=== PATIENT | male | born 1985 | race African-American/Black ===

== ENCOUNTER 2016-12-03 20:55 | Inpatient (IN) | payer MEDICAID ==
[~2016-12-03] VITALS: Ht 167.6 cm; Wt 80.7 kg
[~2016-12-03 20:55] MED LIST: DIVA500T69 PO; FLUO-191 PO; QUET300T2 PO
[2016-12-03 23:55] VITALS: BP 150/83
[2016-12-04] MEDS ORDERED: INFLUENZA VIRUS VACCINE QVS 2016-17 (3YR+)/PF 60 MCG/0.5 ML SYRINGE IM ONE (01:00)
[2016-12-04 02:40] VITALS: BP 147/88
[2016-12-04 08:15] VITALS: BP 108/58
[2016-12-04] MEDS: AmLODIPine BESYLATE 5 MG TABLET PO SCH (09:15)
[2016-12-04] MEDS: ZIPRASIDONE HCL 40 MG CAPSULE PO SCH ×2 (13:16→16:45)
[2016-12-04 16:00] VITALS: BP 118/64
[2016-12-05 04:26] VITALS: BP 117/66
[2016-12-05] MEDS: ZIPRASIDONE HCL 40 MG CAPSULE PO SCH ×2 (06:25→17:00)
[2016-12-05] MEDS: AmLODIPine BESYLATE 5 MG TABLET PO SCH (08:01)
[2016-12-05 08:11] VITALS: BP 120/68
[2016-12-05 08:34] LABS: BASOPHILS # (AUTO) 0.03 K/uL (0.00-0.20); BASOPHILS % (AUTO) 0.3 % (0.0-2.0); EOSINOPHILS # (AUTO) 0.16 K/uL (0.00-0.70); EOSINOPHILS % (AUTO) 1.89 % (1.0-6.0); HEMATOCRIT 45.3 % (41-53); HEMOGLOBIN 14.5 g/dL (13.5-17.5); LYMPHOCYTES # (AUTO) 1.7 K/uL (1.0-4.8); LYMPHOCYTES % (AUTO) 19.4 % (22.0-44.0); MEAN CORPUSCULAR HEMOGLOBIN 28.1 pg (26.0-34.0); MEAN CORPUSCULAR VOLUME 88 fL (80-100); MONOCYTES # (AUTO) 0.5 K/uL (0.1-1.0); MONOCYTES % (AUTO) 5.6 % (2.0-9.0); NEUTROPHILS # (AUTO) 6.3 K/uL (1.8-7.7); NEUTROPHILS % (AUTO) 72.8 % (40.0-70.0); PLATELET COUNT (AUTO) 228 K/uL (150-450); RED BLOOD CELL COUNT(AUTO) 5.17 MIL/uL (4.50-5.90); RED CELL DISTRIBUTION WIDTH 13.7 % (11.5-14.5); WHITE BLOOD COUNT (AUTO) 8.7 K/uL (4.5-11.0)
[2016-12-05 09:34] LABS: ALANINE AMINOTRANSFERASE 35 U/L (12-78); ALBUMIN 3.3 g/dL (3.4-5.0); ANION GAP 7 mmol/L (8-16); ASPARTATE AMINOTRANSFERASE 19 U/L (15-37); BILIRUBIN,TOTAL 0.5 mg/dL (0.1-1.0); CALCIUM, TOTAL 8.9 mg/dL (8.8-10.5); CARBON DIOXIDE 31 mmol/L (22-29); CHLORIDE 109 mmol/L (98-107); CHOL/HDL RATIO 3.7 (4.2-7.3); CREATININE 1.25 mg/dL (0.60-1.30); GLOMERULAR FILTR. RATE CALC > 60 mL/min (>60); POTASSIUM 3.9 mmol/L (3.5-5.1); SODIUM SERUM 147 mmol/L (136-145); TOTAL PROTEIN, SERUM 6.8 g/dL (6.4-8.2); UREA NITROGEN, BLOOD 13 mg/dL (7-18)
[2016-12-05 09:48] LABS: VALPROIC ACID < 3 mcg/mL (50-100)
[2016-12-05 16:52] VITALS: BP 102/60
[2016-12-06] MEDS: ZOLPIDEM TARTRATE 10 MG TABLET PO PRN ×2 (00:27→20:33)
[2016-12-06 05:18] VITALS: BP 114/62
[2016-12-06] MEDS: ZIPRASIDONE HCL 40 MG CAPSULE PO SCH ×2 (06:17→16:22)
[2016-12-06 08:56] VITALS: BP 136/86
[2016-12-06] MEDS: LORazepam 2 MG TABLET PO PRN ×3 (08:56→20:33)
[2016-12-06] MEDS: AmLODIPine BESYLATE 5 MG TABLET PO SCH (08:56)
[2016-12-06 16:02] VITALS: BP 136/73
[2016-12-06] MEDS: HALOPERIDOL 5 MG TABLET PO PRN (16:22)
[2016-12-07 04:42] VITALS: BP 135/72
[2016-12-07] MEDS: ZIPRASIDONE HCL 40 MG CAPSULE PO SCH ×2 (06:37→16:17)
[2016-12-07 08:04] VITALS: BP 128/70
[2016-12-07] MEDS: AmLODIPine BESYLATE 5 MG TABLET PO SCH (09:57)
[2016-12-07] MEDS: LORazepam 2 MG TABLET PO PRN ×2 (09:57→16:17)
[2016-12-07 16:00] VITALS: BP 117/87
[2016-12-07] MEDS: HALOPERIDOL 5 MG TABLET PO PRN (16:17)
[2016-12-08] MEDS: ZIPRASIDONE HCL 40 MG CAPSULE PO SCH ×2 (06:14→16:01)
[2016-12-08 06:56] VITALS: BP 146/85
[2016-12-08 08:14] VITALS: BP 127/61
[2016-12-08] MEDS: AmLODIPine BESYLATE 5 MG TABLET PO SCH (08:33)
[2016-12-08] MEDS: LORazepam 2 MG TABLET PO PRN (08:33)
[2016-12-08] MEDS ORDERED: ZIPR40CA2 PO (14:15)
[2016-12-08] MEDS ORDERED: AMLO-511 PO (14:15)
[2016-12-08 16:22] VITALS: BP 120/68
== END 2016-12-08 16:30 | disposition home or self-care (01) | DRG 750 ==
LOC: B3A 12-04 00:07
PROVIDERS: ADMIT Psychiatry & Neurology Child & Adolescent Psychiatry; ATTEND Psychiatry & Neurology Child & Adolescent Psychiatry
DX: F25.1 Schizoaffective disorder, depressive type (principal); F39 Unspecified mood [affective] disorder; I10 Essential (primary) hypertension; Z79.899 Other long term (current) drug therapy; Z90.49 Acquired absence of other specified parts of digestive tract; Z72.89 Other problems related to lifestyle
CPT/HCPCS: 90471

== ENCOUNTER 2016-12-11 18:30 | Inpatient (IN) | payer MEDICAID ==
[~2016-12-11] VITALS: Ht 172.7 cm; Wt 80.3 kg
[~2016-12-11 18:30] MED LIST changes: +AMLO-511 PO; -DIVA500T69 PO; -FLUO-191 PO; -QUET300T2 PO; +ZIPR40CA2 PO
[2016-12-11 19:10] VITALS: BP 129/77
[2016-12-11] MEDS ORDERED: HALOPERIDOL 5 MG TABLET PO PRN (19:15)
[2016-12-11] MEDS ORDERED: LORazepam 2 MG TABLET PO PRN (19:15)
[2016-12-11] MEDS ORDERED: INFLUENZA VIRUS VACCINE QVS 2016-17 (3YR+)/PF 60 MCG/0.5 ML SYRINGE IM ONE (20:15)
[2016-12-11] MEDS ORDERED: PNEUMOCOCCAL VACCINE POLYVALENT 0.5 ML VIAL [PPSV23] IM ONE (20:15)
[2016-12-11 20:57] VITALS: BP 141/70
[2016-12-12 00:59] VITALS: BP 109/69
[2016-12-12] MEDS: ZIPRASIDONE HCL 40 MG CAPSULE PO SCH ×2 (06:51→16:23)
[2016-12-12 07:15] LABS: BASOPHILS # (AUTO) 0.07 K/uL (0.00-0.20); EOSINOPHILS # (AUTO) 0.13 K/uL (0.00-0.70); EOSINOPHILS % (AUTO) 1.94 % (1.0-6.0); HEMATOCRIT 43.3 % (41-53); HEMOGLOBIN 14.1 g/dL (13.5-17.5); LYMPHOCYTES # (AUTO) 1.5 K/uL (1.0-4.8); LYMPHOCYTES % (AUTO) 22.3 % (22.0-44.0); MEAN CORPUSCULAR HEMOGLOBIN 28.4 pg (26.0-34.0); MEAN CORPUSCULAR HGB CONC 32.6 G/dL (31.0-37.0); MEAN CORPUSCULAR VOLUME 87 fL (80-100); MONOCYTES # (AUTO) 0.6 K/uL (0.1-1.0); NEUTROPHILS # (AUTO) 4.5 K/uL (1.8-7.7); NEUTROPHILS % (AUTO) 65.8 % (40.0-70.0); PLATELET COUNT (AUTO) 238 K/uL (150-450); RED BLOOD CELL COUNT(AUTO) 4.97 MIL/uL (4.50-5.90); RED CELL DISTRIBUTION WIDTH 13.2 % (11.5-14.5); WHITE BLOOD COUNT (AUTO) 6.9 K/uL (4.5-11.0)
[2016-12-12 07:59] LABS: ALANINE AMINOTRANSFERASE 46 U/L (12-78); ALBUMIN 3.5 g/dL (3.4-5.0); ANION GAP 9 mmol/L (8-16); ASPARTATE AMINOTRANSFERASE 25 U/L (15-37); BILIRUBIN,TOTAL 0.4 mg/dL (0.1-1.0); CALCIUM, TOTAL 8.9 mg/dL (8.8-10.5); CARBON DIOXIDE 29 mmol/L (22-29); CHLORIDE 108 mmol/L (98-107); CHOL/HDL RATIO 4.6 (4.2-7.3); CREATININE 1.29 mg/dL (0.60-1.30); GLOMERULAR FILTR. RATE CALC > 60 mL/min (>60); SODIUM SERUM 146 mmol/L (136-145); TOTAL PROTEIN, SERUM 7.1 g/dL (6.4-8.2); UREA NITROGEN, BLOOD 19 mg/dL (7-18)
[2016-12-12 08:51] VITALS: BP 111/62
[2016-12-12] MEDS: AmLODIPine BESYLATE 5 MG TABLET PO SCH (09:14)
[2016-12-12 16:00] VITALS: BP_SYST 115; BP_SYST 118; BP_DIAS 61; BP_DIAS 74
[2016-12-13 03:53] VITALS: BP 106/61
[2016-12-13] MEDS: ZIPRASIDONE HCL 40 MG CAPSULE PO SCH ×2 (06:32→16:16)
[2016-12-13] MEDS: AmLODIPine BESYLATE 5 MG TABLET PO SCH ×2 (08:39→09:00)
[2016-12-13 08:53] VITALS: BP 113/62
[2016-12-13 16:34] VITALS: BP 137/96
[2016-12-14 01:08] VITALS: BP 136/84
[2016-12-14] MEDS: ZOLPIDEM TARTRATE 10 MG TABLET PO PRN ×2 (01:10→20:34)
[2016-12-14] MEDS: ZIPRASIDONE HCL 40 MG CAPSULE PO SCH ×2 (06:17→16:58)
[2016-12-14 08:21] VITALS: BP 139/68
[2016-12-14] MEDS: AmLODIPine BESYLATE 5 MG TABLET PO SCH (08:52)
[2016-12-14 16:30] VITALS: BP 133/81
[2016-12-15 06:00] VITALS: BP 138/82
[2016-12-15] MEDS: ZIPRASIDONE HCL 40 MG CAPSULE PO SCH (06:40)
[2016-12-15 08:26] VITALS: BP 136/69
[2016-12-15] MEDS ORDERED: NYSTATIN 30 GM CREAM TP SCH ×4 (09:00→17:00)
[2016-12-15] MEDS ORDERED: BACITRACIN 28.4 GM OINTMENT TP SCH (09:00)
[2016-12-15] MEDS: AmLODIPine BESYLATE 5 MG TABLET PO SCH (10:28)
== END 2016-12-15 16:00 | disposition home or self-care (01) | DRG 750 ==
LOC: B2S 19:23 → EDSTATUS 20:03 → B2S 12-14 17:04
PROVIDERS: ADMIT Psychiatry & Neurology Psychiatry; ATTEND Psychiatry & Neurology Child & Adolescent Psychiatry
PROC: 3E0234Z Introduction of Serum, Toxoid and Vaccine into Muscle, Percutaneous Approach (ICD-10-PCS; principal; 2016-12-11)
PROC: 3E0234Z Introduction of Serum, Toxoid and Vaccine into Muscle, Percutaneous Approach (ICD-10-PCS; 2016-12-11)
DX: F25.1 Schizoaffective disorder, depressive type (principal); R45.851 Suicidal ideations; Z59.0 Homelessness; I10 Essential (primary) hypertension; B35.3 Tinea pedis; F12.90 Cannabis use, unspecified, uncomplicated; Z90.49 Acquired absence of other specified parts of digestive tract; Z79.899 Other long term (current) drug therapy; Z23 Encounter for immunization
CPT/HCPCS: 87081; 90471

== ENCOUNTER 2016-12-26 00:41 | Inpatient (IN) | payer MEDICAID, OTHER ==
[~2016-12-26] VITALS: Ht 172.7 cm; Wt 80.7 kg
[2016-12-26 01:42] LABS: BASOPHILS % (AUTO) 0.5 % (0.0-2.0); EOSINOPHILS % (AUTO) 3.5 % (1.0-6.0); HEMATOCRIT 40.8 % (41-53); HEMOGLOBIN 13.1 g/dL (13.5-17.5); LYMPHOCYTES # (AUTO) 2.2 K/uL (1.0-4.8); LYMPHOCYTES % (AUTO) 33.9 % (22.0-44.0); MEAN CORPUSCULAR HEMOGLOBIN 27.9 pg (26.0-34.0); MEAN CORPUSCULAR HGB CONC 32.1 G/dL (31.0-37.0); MEAN CORPUSCULAR VOLUME 87 fL (80-100); MONOCYTES # (AUTO) 0.4 K/uL (0.1-1.0); MONOCYTES % (AUTO) 6.6 % (2.0-9.0); NEUTROPHILS # (AUTO) 3.5 K/uL (1.8-7.7); NEUTROPHILS % (AUTO) 55.5 % (40.0-70.0); PLATELET COUNT (AUTO) 304 K/uL (150-450); RED BLOOD CELL COUNT(AUTO) 4.69 MIL/uL (4.50-5.90); RED CELL DISTRIBUTION WIDTH 13.3 % (11.5-14.5); WHITE BLOOD COUNT (AUTO) 6.4 K/uL (4.5-11.0)
[2016-12-26 01:55] LABS: ANION GAP 5 mmol/L (8-16); CALCIUM, TOTAL 9.2 mg/dL (8.8-10.5); CARBON DIOXIDE 32 mmol/L (22-29); CHLORIDE 113 mmol/L (98-107); CREATININE 1.24 mg/dL (0.60-1.30); GLOMERULAR FILTR. RATE CALC > 60 mL/min (>60); POTASSIUM 3.8 mmol/L (3.5-5.1); SODIUM SERUM 150 mmol/L (136-145); UREA NITROGEN, BLOOD 14 mg/dL (7-18)
[2016-12-26 03:01] LABS: ALANINE AMINOTRANSFERASE 39 U/L (12-78); ALBUMIN 3.4 g/dL (3.4-5.0); ASPARTATE AMINOTRANSFERASE 19 U/L (15-37); BILIRUBIN,TOTAL 0.2 mg/dL (0.1-1.0); TOTAL PROTEIN, SERUM 7.3 g/dL (6.4-8.2)
[2016-12-26] MEDS ORDERED: ZOLPIDEM TARTRATE 10 MG TABLET PO PRN (05:45)
[2016-12-26] MEDS ORDERED: HALOPERIDOL 5 MG TABLET PO PRN (05:45)
[2016-12-26 19:23] VITALS: BP 118/76
[2016-12-27 07:02] VITALS: BP 110/70
[2016-12-27 09:06] VITALS: BP 127/80
[2016-12-27 16:00] VITALS: BP 119/70
[2016-12-27] MEDS: LORazepam 2 MG TABLET PO PRN (16:27)
[2016-12-27] MEDS: ZIPRASIDONE HCL 40 MG CAPSULE PO SCH (16:27)
[2016-12-28 02:46] VITALS: BP 136/70
[2016-12-28] MEDS: ZIPRASIDONE HCL 40 MG CAPSULE PO SCH ×2 (06:20→17:37)
[2016-12-28 09:09] VITALS: BP 109/63
[2016-12-28 09:17] LABS: ANION GAP 10 mmol/L (8-16); CALCIUM, TOTAL 9.5 mg/dL (8.8-10.5); CARBON DIOXIDE 28 mmol/L (22-29); CHLORIDE 108 mmol/L (98-107); CREATININE 1.14 mg/dL (0.60-1.30); GLOMERULAR FILTR. RATE CALC > 60 mL/min (>60); POTASSIUM 4.2 mmol/L (3.5-5.1); SODIUM SERUM 146 mmol/L (136-145); UREA NITROGEN, BLOOD 10 mg/dL (7-18)
[2016-12-28 16:21] VITALS: BP 122/68
[2016-12-28] MEDS: LORazepam 2 MG TABLET PO PRN (17:37)
[2016-12-28] MEDS: NYSTATIN 30 GM CREAM TP SCH (21:48)
[2016-12-28] MEDS: NEOMYCIN/BACITRACIN/POLYMYXIN B 30 GM OINTMENT TP SCH (21:48)
[2016-12-29 03:08] VITALS: BP 129/72
[2016-12-29] MEDS: ZIPRASIDONE HCL 40 MG CAPSULE PO SCH (06:22)
[2016-12-29 08:38] VITALS: BP 124/79
[2016-12-29] MEDS: NEOMYCIN/BACITRACIN/POLYMYXIN B 30 GM OINTMENT TP SCH (09:41)
[2016-12-29] MEDS: NYSTATIN 30 GM CREAM TP SCH (09:41)
[2016-12-29] MEDS: LORazepam 2 MG TABLET PO PRN (09:41)
[2016-12-29] MEDS ORDERED: NEOM1OIN8 TP (11:15)
== END 2016-12-29 14:30 | disposition home or self-care (01) | DRG 753 ==
LOC: EMS 00:42 → EEVIPCON 00:42 → B3A 18:39
PROVIDERS: ADMIT Psychiatry & Neurology Psychiatry; ATTEND Psychiatry & Neurology Child & Adolescent Psychiatry
DX: F31.4 Bipolar disorder, current episode depressed, severe, without psychotic features (principal); R45.851 Suicidal ideations; I10 Essential (primary) hypertension; F20.9 Schizophrenia, unspecified; F41.9 Anxiety disorder, unspecified; Z79.899 Other long term (current) drug therapy
CPT/HCPCS: 87081; 99285; G0480

== ENCOUNTER 2017-01-05 21:49 | Inpatient (IN) | payer MEDICAID ==
[~2017-01-05] VITALS: Ht 172.7 cm; Wt 79.4 kg
[~2017-01-05 21:49] MED LIST changes: -AMLO-511 PO; +NEOM1OIN8 TP
[2017-01-05] MEDS ORDERED: ZOLPIDEM TARTRATE 10 MG TABLET PO PRN (22:30)
[2017-01-05 22:42] VITALS: BP 124/72
[2017-01-05] MEDS ORDERED: -PHARMACY VACCINE NOTE- MISC ONE ×2 (22:45)
[2017-01-06 05:49] VITALS: BP 121/72
[2017-01-06 07:48] LABS: BASOPHILS # (AUTO) 0.03 K/uL (0.00-0.20); BASOPHILS % (AUTO) 0.5 % (0.0-2.0); EOSINOPHILS # (AUTO) 0.21 K/uL (0.00-0.70); EOSINOPHILS % (AUTO) 3.71 % (1.0-6.0); HEMATOCRIT 42.1 % (41-53); HEMOGLOBIN 13.9 g/dL (13.5-17.5); LYMPHOCYTES # (AUTO) 1.9 K/uL (1.0-4.8); LYMPHOCYTES % (AUTO) 33.8 % (22.0-44.0); MEAN CORPUSCULAR HEMOGLOBIN 28.4 pg (26.0-34.0); MEAN CORPUSCULAR VOLUME 86 fL (80-100); MONOCYTES # (AUTO) 0.3 K/uL (0.1-1.0); MONOCYTES % (AUTO) 6.1 % (2.0-9.0); NEUTROPHILS # (AUTO) 3.2 K/uL (1.8-7.7); NEUTROPHILS % (AUTO) 55.9 % (40.0-70.0); PLATELET COUNT (AUTO) 231 K/uL (150-450); RED BLOOD CELL COUNT(AUTO) 4.88 MIL/uL (4.50-5.90); RED CELL DISTRIBUTION WIDTH 14.2 % (11.5-14.5); WHITE BLOOD COUNT (AUTO) 5.7 K/uL (4.5-11.0)
[2017-01-06 08:16] LABS: HEMOGLOBIN A1C 5.5 % (4.5-6.2)
[2017-01-06 08:47] VITALS: BP 112/64
[2017-01-06 09:07] LABS: ALANINE AMINOTRANSFERASE 35 U/L (12-78); ALBUMIN 3.4 g/dL (3.4-5.0); ANION GAP 5 mmol/L (8-16); ASPARTATE AMINOTRANSFERASE 19 U/L (15-37); BILIRUBIN,TOTAL 0.2 mg/dL (0.1-1.0); CALCIUM, TOTAL 8.6 mg/dL (8.8-10.5); CARBON DIOXIDE 33 mmol/L (22-29); CHLORIDE 110 mmol/L (98-107); CHOL/HDL RATIO 4.1 (4.2-7.3); CREATININE 1.24 mg/dL (0.60-1.30); GLOMERULAR FILTR. RATE CALC > 60 mL/min (>60); POTASSIUM 3.8 mmol/L (3.5-5.1); SODIUM SERUM 148 mmol/L (136-145); UREA NITROGEN, BLOOD 16 mg/dL (7-18)
[2017-01-06 16:13] VITALS: BP 110/68
[2017-01-06] MEDS: ZIPRASIDONE HCL 40 MG CAPSULE PO SCH (16:26)
[2017-01-06] MEDS: NYSTATIN 30 GM CREAM TP SCH (16:26)
[2017-01-06] MEDS: NEOMYCIN/BACITRACIN/POLYMYXIN B 30 GM OINTMENT TP SCH (16:26)
[2017-01-07 02:54] VITALS: BP 115/65
[2017-01-07] MEDS: ZIPRASIDONE HCL 40 MG CAPSULE PO SCH ×2 (07:13→16:15)
[2017-01-07 08:25] VITALS: BP 117/70
[2017-01-07] MEDS: NYSTATIN 30 GM CREAM TP SCH ×2 (08:44→16:16)
[2017-01-07] MEDS: NEOMYCIN/BACITRACIN/POLYMYXIN B 30 GM OINTMENT TP SCH ×2 (08:44→16:16)
[2017-01-07 16:28] VITALS: BP 126/61
[2017-01-08 00:12] VITALS: BP 105/61
[2017-01-08] MEDS: ZIPRASIDONE HCL 40 MG CAPSULE PO SCH ×2 (06:54→16:38)
[2017-01-08 08:27] VITALS: BP 119/69
[2017-01-08 08:43] LABS: APPEARANCE,URINE CLEAR (CLEAR); GLUCOSE, URINE (UA) NEGATIVE (NEGATIVE); KETONES,URINE NEGATIVE (NEGATIVE); LEUKOCYTE ESTERASE ,URINE NEGATIVE (NEGATIVE); OCCULT BLOOD,URINE NEGATIVE (NEGATIVE); PH,URINE 6.5 (5.0-8.0); PROTEIN,URINE NEGATIVE (NEGATIVE)
[2017-01-08 08:45] LABS: ADD UA MICROSCOPIC NO
[2017-01-08] MEDS: NEOMYCIN/BACITRACIN/POLYMYXIN B 30 GM OINTMENT TP SCH ×2 (09:47→16:53)
[2017-01-08] MEDS: NYSTATIN 30 GM CREAM TP SCH ×2 (09:47→16:53)
[2017-01-08] MEDS: LORazepam 2 MG TABLET PO PRN ×2 (10:40→16:38)
[2017-01-08] MEDS: HALOPERIDOL 5 MG TABLET PO PRN ×2 (10:40→16:38)
[2017-01-08 16:10] VITALS: BP 126/68
[2017-01-09 04:36] VITALS: BP 124/70
[2017-01-09] MEDS: ZIPRASIDONE HCL 40 MG CAPSULE PO SCH ×2 (06:23→16:20)
[2017-01-09 09:00] VITALS: BP 122/72
[2017-01-09] MEDS: NYSTATIN 30 GM CREAM TP SCH ×2 (09:12→16:20)
[2017-01-09] MEDS: LORazepam 2 MG TABLET PO PRN ×2 (09:12→16:20)
[2017-01-09] MEDS: NEOMYCIN/BACITRACIN/POLYMYXIN B 30 GM OINTMENT TP SCH ×2 (09:12→16:20)
[2017-01-09 16:00] VITALS: BP 123/83
[2017-01-09] MEDS: HALOPERIDOL 5 MG TABLET PO PRN (16:20)
[2017-01-10 00:56] VITALS: BP 119/72
[2017-01-10] MEDS: ZIPRASIDONE HCL 40 MG CAPSULE PO SCH (06:14)
[2017-01-10 08:09] VITALS: BP 104/63
[2017-01-10] MEDS: NEOMYCIN/BACITRACIN/POLYMYXIN B 30 GM OINTMENT TP SCH (09:35)
[2017-01-10] MEDS: NYSTATIN 30 GM CREAM TP SCH (09:35)
== END 2017-01-10 12:25 | disposition home or self-care (01) | DRG 750 ==
LOC: B2S 22:26 → EDSTATUS 22:28 → B3A 01-08 10:53
PROVIDERS: ATTEND Psychiatry & Neurology Psychiatry
DX: F20.0 Paranoid schizophrenia (principal); F41.9 Anxiety disorder, unspecified; Z90.49 Acquired absence of other specified parts of digestive tract
CPT/HCPCS: 83036; 84439; 84443; 87081

== ENCOUNTER 2017-01-21 21:30 | Inpatient (IN) | payer MEDICAID ==
[~2017-01-21] VITALS: Ht 172.7 cm; Wt 81.0 kg
[~2017-01-21 21:30] MED LIST changes: -NEOM1OIN8 TP
[2017-01-22 04:20] VITALS: BP 124/68
[2017-01-22 09:09] VITALS: BP 102/60
[2017-01-22 16:07] VITALS: BP 116/70
[2017-01-22] MEDS: ZIPRASIDONE HCL 40 MG CAPSULE PO SCH (17:53)
[2017-01-23 01:17] VITALS: BP 117/76
[2017-01-23] MEDS: ZIPRASIDONE HCL 40 MG CAPSULE PO SCH ×2 (06:46→17:22)
[2017-01-23] MEDS: FLUoxetine HCL 20 MG CAPSULE PO SCH (07:58)
[2017-01-23 08:36] VITALS: BP 131/84
[2017-01-23 16:00] VITALS: BP 123/71
[2017-01-23] MEDS: QUEtiapine FUMARATE 100 MG TABLET PO PRN (17:22)
[2017-01-23] MEDS: LORazepam 1 MG TABLET PO PRN (17:22)
[2017-01-24 02:10] VITALS: BP 134/85
[2017-01-24] MEDS: ZIPRASIDONE HCL 40 MG CAPSULE PO SCH ×2 (06:34→16:04)
[2017-01-24 07:52] LABS: BASOPHILS # (AUTO) 0.04 K/uL (0.00-0.20); BASOPHILS % (AUTO) 0.5 % (0.0-2.0); EOSINOPHILS % (AUTO) 2.85 % (1.0-6.0); HEMATOCRIT 46.3 % (41-53); HEMOGLOBIN 15.1 g/dL (13.5-17.5); LYMPHOCYTES # (AUTO) 1.9 K/uL (1.0-4.8); MEAN CORPUSCULAR HEMOGLOBIN 28.2 pg (26.0-34.0); MEAN CORPUSCULAR HGB CONC 32.5 G/dL (31.0-37.0); MEAN CORPUSCULAR VOLUME 87 fL (80-100); MONOCYTES # (AUTO) 0.4 K/uL (0.1-1.0); MONOCYTES % (AUTO) 5.6 % (2.0-9.0); NEUTROPHILS # (AUTO) 4.4 K/uL (1.8-7.7); PLATELET COUNT (AUTO) 241 K/uL (150-450); RED BLOOD CELL COUNT(AUTO) 5.35 MIL/uL (4.50-5.90); RED CELL DISTRIBUTION WIDTH 14.2 % (11.5-14.5); WHITE BLOOD COUNT (AUTO) 6.9 K/uL (4.5-11.0)
[2017-01-24 08:02] VITALS: BP 113/56
[2017-01-24 08:05] LABS: ALANINE AMINOTRANSFERASE 33 U/L (12-78); ALBUMIN 3.4 g/dL (3.4-5.0); ANION GAP 5 mmol/L (8-16); ASPARTATE AMINOTRANSFERASE 19 U/L (15-37); BILIRUBIN,TOTAL 0.4 mg/dL (0.1-1.0); CALCIUM, TOTAL 9.1 mg/dL (8.8-10.5); CARBON DIOXIDE 33 mmol/L (22-29); CHLORIDE 108 mmol/L (98-107); CREATININE 1.31 mg/dL (0.60-1.30); GLOMERULAR FILTR. RATE CALC > 60 mL/min (>60); POTASSIUM 4.2 mmol/L (3.5-5.1); SODIUM SERUM 146 mmol/L (136-145); TOTAL PROTEIN, SERUM 7.3 g/dL (6.4-8.2); UREA NITROGEN, BLOOD 14 mg/dL (7-18)
[2017-01-24] MEDS: FLUoxetine HCL 20 MG CAPSULE PO SCH (08:14)
[2017-01-24 16:00] VITALS: BP 113/65
[2017-01-24] MEDS: QUEtiapine FUMARATE 100 MG TABLET PO PRN (16:04)
[2017-01-24] MEDS: LORazepam 1 MG TABLET PO PRN (16:04)
[2017-01-25 05:08] VITALS: BP 118/74
[2017-01-25] MEDS: ZIPRASIDONE HCL 40 MG CAPSULE PO SCH ×2 (06:35→16:07)
[2017-01-25] MEDS: FLUoxetine HCL 20 MG CAPSULE PO SCH (08:22)
[2017-01-25 08:31] VITALS: BP 125/62
[2017-01-25 16:00] VITALS: BP 135/66
[2017-01-25] MEDS: QUEtiapine FUMARATE 100 MG TABLET PO PRN (16:07)
[2017-01-25] MEDS: LORazepam 1 MG TABLET PO PRN (16:07)
[2017-01-26] MEDS: ZIPRASIDONE HCL 40 MG CAPSULE PO SCH (06:20)
[2017-01-26 07:16] VITALS: BP 140/74
[2017-01-26 08:33] VITALS: BP 135/76
[2017-01-26] MEDS: FLUoxetine HCL 20 MG CAPSULE PO SCH (09:01)
[2017-01-26] MEDS: LORazepam 1 MG TABLET PO PRN (09:01)
[2017-01-26] MEDS ORDERED: FLUO-191 PO (14:47)
== END 2017-01-26 15:55 | disposition home or self-care (01) | DRG 750 ==
LOC: B2S 01-22 03:52 → B3A 01-22 14:40
PROVIDERS: ADMIT Psychiatry & Neurology Psychiatry; ATTEND Psychiatry & Neurology Child & Adolescent Psychiatry
DX: F25.0 Schizoaffective disorder, bipolar type (principal); R45.851 Suicidal ideations; Z59.0 Homelessness; F41.9 Anxiety disorder, unspecified; F10.20 Alcohol dependence, uncomplicated; F17.200 Nicotine dependence, unspecified, uncomplicated; Z79.899 Other long term (current) drug therapy; Z87.19 Personal history of other diseases of the digestive system; Z91.5 Personal history of self-harm
CPT/HCPCS: 87081

== ENCOUNTER 2017-02-01 02:01 | Emergency (ER) | payer MEDICAID, OTHER ==
[~2017-02-01] VITALS: Ht 170.2 cm; Wt 77.0 kg
[~2017-02-01 02:01] MED LIST changes: +FLUO-191 PO
[2017-02-01] MEDS ORDERED: QUET300T2 PO (02:11)
[2017-02-01 02:57] LABS: BASOPHILS # (AUTO) 0.05 K/uL (0.00-0.20); BASOPHILS % (AUTO) 0.8 % (0.0-2.0); EOSINOPHILS # (AUTO) 0.12 K/uL (0.00-0.70); EOSINOPHILS % (AUTO) 1.98 % (1.0-6.0); HEMATOCRIT 44.6 % (41-53); HEMOGLOBIN 14.5 g/dL (13.5-17.5); LYMPHOCYTES # (AUTO) 2.1 K/uL (1.0-4.8); LYMPHOCYTES % (AUTO) 35.4 % (22.0-44.0); MEAN CORPUSCULAR HEMOGLOBIN 28.1 pg (26.0-34.0); MEAN CORPUSCULAR HGB CONC 32.6 G/dL (31.0-37.0); MEAN CORPUSCULAR VOLUME 86 fL (80-100); MONOCYTES # (AUTO) 0.4 K/uL (0.1-1.0); MONOCYTES % (AUTO) 5.9 % (2.0-9.0); NEUTROPHILS # (AUTO) 3.3 K/uL (1.8-7.7); PLATELET COUNT (AUTO) 234 K/uL (150-450); RED BLOOD CELL COUNT(AUTO) 5.18 MIL/uL (4.50-5.90); RED CELL DISTRIBUTION WIDTH 13.3 % (11.5-14.5)
[2017-02-01 03:01] LABS: ANION GAP 5 mmol/L (8-16); CALCIUM, TOTAL 9.1 mg/dL (8.8-10.5); CARBON DIOXIDE 34 mmol/L (22-29); CHLORIDE 107 mmol/L (98-107); CREATININE 1.31 mg/dL (0.60-1.30); GLOMERULAR FILTR. RATE CALC > 60 mL/min (>60); SODIUM SERUM 146 mmol/L (136-145); UREA NITROGEN, BLOOD 12 mg/dL (7-18)
[2017-02-01 03:08] LABS: ALANINE AMINOTRANSFERASE 37 U/L (12-78); ALBUMIN 3.9 g/dL (3.4-5.0); ASPARTATE AMINOTRANSFERASE 25 U/L (15-37); BILIRUBIN,TOTAL 0.3 mg/dL (0.1-1.0); TOTAL PROTEIN, SERUM 7.6 g/dL (6.4-8.2)
[2017-02-01 04:19] VITALS: BP 129/73
[2017-02-01] MEDS ORDERED: TRAZ-147 PO (12:21)
[2017-02-01] MEDS ORDERED: DIVA500T35 PO (12:21)
== END 2017-02-01 04:41 | disposition home or self-care (01) ==
LOC: EMS 02:06
DX: F31.9 Bipolar disorder, unspecified (principal); R45.851 Suicidal ideations; F20.9 Schizophrenia, unspecified; F41.9 Anxiety disorder, unspecified; I10 Essential (primary) hypertension
CPT/HCPCS: 36415; 80053; 80307; 85025; 99285; G0480

== ENCOUNTER 2017-02-01 10:19 | Inpatient (IN) | payer MEDICAID ==
[~2017-02-01] VITALS: Ht 172.7 cm; Wt 82.9 kg
[~2017-02-01 10:19] MED LIST changes: +QUET300T2 PO
[2017-02-01 11:32] VITALS: BP 117/54
[2017-02-01] MEDS ORDERED: QUEtiapine FUMARATE 100 MG TABLET PO PRN (11:45)
[2017-02-01] MEDS ORDERED: DIVA500T35 PO (12:21)
[2017-02-01] MEDS ORDERED: TRAZ-147 PO (12:21)
[2017-02-01 13:08] VITALS: BP 114/87
[2017-02-01 16:10] VITALS: BP 120/69
[2017-02-01] MEDS: FLUoxetine HCL 20 MG CAPSULE PO SCH (17:22)
[2017-02-01] MEDS: ZIPRASIDONE HCL 40 MG CAPSULE PO SCH (17:22)
[2017-02-02] MEDS: ZIPRASIDONE HCL 40 MG CAPSULE PO SCH ×2 (06:16→17:03)
[2017-02-02 07:06] VITALS: BP 102/69
[2017-02-02 07:40] LABS: BASOPHILS # (AUTO) 0.05 K/uL (0.00-0.20); BASOPHILS % (AUTO) 0.9 % (0.0-2.0); EOSINOPHILS # (AUTO) 0.12 K/uL (0.00-0.70); EOSINOPHILS % (AUTO) 2.05 % (1.0-6.0); HEMATOCRIT 42.9 % (41-53); HEMOGLOBIN 14.1 g/dL (13.5-17.5); LYMPHOCYTES # (AUTO) 1.7 K/uL (1.0-4.8); LYMPHOCYTES % (AUTO) 27.8 % (22.0-44.0); MEAN CORPUSCULAR HEMOGLOBIN 28.2 pg (26.0-34.0); MEAN CORPUSCULAR HGB CONC 32.8 G/dL (31.0-37.0); MEAN CORPUSCULAR VOLUME 86 fL (80-100); MONOCYTES # (AUTO) 0.4 K/uL (0.1-1.0); MONOCYTES % (AUTO) 6.7 % (2.0-9.0); NEUTROPHILS # (AUTO) 3.8 K/uL (1.8-7.7); NEUTROPHILS % (AUTO) 62.6 % (40.0-70.0); PLATELET COUNT (AUTO) 205 K/uL (150-450); RED BLOOD CELL COUNT(AUTO) 4.97 MIL/uL (4.50-5.90); RED CELL DISTRIBUTION WIDTH 13.7 % (11.5-14.5); WHITE BLOOD COUNT (AUTO) 6.1 K/uL (4.5-11.0)
[2017-02-02 08:00] LABS: ALANINE AMINOTRANSFERASE 31 U/L (12-78); ALBUMIN 3.3 g/dL (3.4-5.0); ANION GAP 7 mmol/L (8-16); ASPARTATE AMINOTRANSFERASE 16 U/L (15-37); BILIRUBIN,TOTAL 0.6 mg/dL (0.1-1.0); CARBON DIOXIDE 30 mmol/L (22-29); CHLORIDE 112 mmol/L (98-107); CREATININE 1.16 mg/dL (0.60-1.30); GLOMERULAR FILTR. RATE CALC > 60 mL/min (>60); POTASSIUM 3.8 mmol/L (3.5-5.1); SODIUM SERUM 149 mmol/L (136-145); TOTAL PROTEIN, SERUM 6.7 g/dL (6.4-8.2); UREA NITROGEN, BLOOD 16 mg/dL (7-18)
[2017-02-02] MEDS: FLUoxetine HCL 20 MG CAPSULE PO SCH (08:21)
[2017-02-02 16:06] VITALS: BP 112/70
[2017-02-02] MEDS: LORazepam 1 MG TABLET PO PRN (17:03)
[2017-02-03] MEDS: ZIPRASIDONE HCL 40 MG CAPSULE PO SCH ×2 (06:21→17:02)
[2017-02-03] MEDS: FLUoxetine HCL 20 MG CAPSULE PO SCH (08:39)
[2017-02-03 08:58] VITALS: BP 109/45
[2017-02-03 16:00] VITALS: BP 99/51
[2017-02-03 17:42] VITALS: BP 130/63
[2017-02-04 06:50] VITALS: BP 131/66
[2017-02-04] MEDS: ZIPRASIDONE HCL 40 MG CAPSULE PO SCH ×2 (06:59→16:39)
[2017-02-04 08:08] VITALS: BP 123/77
[2017-02-04] MEDS: FLUoxetine HCL 20 MG CAPSULE PO SCH (08:25)
[2017-02-04 16:09] VITALS: BP 138/72
[2017-02-04] MEDS: LORazepam 1 MG TABLET PO PRN (17:37)
[2017-02-05 05:54] VITALS: BP 133/73
[2017-02-05] MEDS: ZIPRASIDONE HCL 40 MG CAPSULE PO SCH (06:46)
[2017-02-05] MEDS: LORazepam 1 MG TABLET PO PRN (08:15)
[2017-02-05] MEDS: FLUoxetine HCL 20 MG CAPSULE PO SCH (08:16)
[2017-02-05 08:28] VITALS: BP 119/65
== END 2017-02-05 11:18 | disposition home or self-care (01) | DRG 750 ==
LOC: B3A 11:46
PROVIDERS: ADMIT Psychiatry & Neurology Child & Adolescent Psychiatry; ATTEND Psychiatry & Neurology Child & Adolescent Psychiatry
DX: F25.1 Schizoaffective disorder, depressive type (principal); R45.851 Suicidal ideations; I10 Essential (primary) hypertension; Z90.49 Acquired absence of other specified parts of digestive tract; Z79.899 Other long term (current) drug therapy
CPT/HCPCS: 87081

== ENCOUNTER 2017-02-21 20:21 | Inpatient (IN) | payer MEDICAID ==
[~2017-02-21] VITALS: Ht 172.7 cm; Wt 81.6 kg
[~2017-02-21 20:21] MED LIST changes: -QUET300T2 PO
[2017-02-21 21:02] VITALS: BP 105/69
[2017-02-21] MEDS ORDERED: -PHARMACY VACCINE NOTE- MISC ONE ×2 (21:30)
[2017-02-22 07:07] VITALS: BP 125/79
[2017-02-22 08:46] VITALS: BP 131/86
[2017-02-22 08:59] LABS: BASOPHILS % (AUTO) 0.5 % (0.0-2.0); EOSINOPHILS % (AUTO) 3.3 % (1.0-6.0); HEMATOCRIT 46.6 % (41-53); HEMOGLOBIN 14.8 g/dL (13.5-17.5); LYMPHOCYTES # (AUTO) 1.9 K/uL (1.0-4.8); LYMPHOCYTES % (AUTO) 35.4 % (22.0-44.0); MEAN CORPUSCULAR HEMOGLOBIN 27.8 pg (26.0-34.0); MEAN CORPUSCULAR HGB CONC 31.8 G/dL (31.0-37.0); MEAN CORPUSCULAR VOLUME 88 fL (80-100); MONOCYTES # (AUTO) 0.4 K/uL (0.1-1.0); MONOCYTES % (AUTO) 6.6 % (2.0-9.0); NEUTROPHILS # (AUTO) 2.9 K/uL (1.8-7.7); NEUTROPHILS % (AUTO) 54.2 % (40.0-70.0); PLATELET COUNT (AUTO) 236 K/uL (150-450); RED BLOOD CELL COUNT(AUTO) 5.32 MIL/uL (4.50-5.90); RED CELL DISTRIBUTION WIDTH 14.3 % (11.5-14.5); WHITE BLOOD COUNT (AUTO) 5.3 K/uL (4.5-11.0)
[2017-02-22 09:05] LABS: HEMOGLOBIN A1C 5.9 % (4.5-6.2)
[2017-02-22] MEDS: FLUoxetine HCL 20 MG CAPSULE PO SCH (09:41)
[2017-02-22 10:18] LABS: ALANINE AMINOTRANSFERASE 37 U/L (12-78); ALBUMIN 3.5 g/dL (3.4-5.0); ANION GAP 8 mmol/L (8-16); ASPARTATE AMINOTRANSFERASE 20 U/L (15-37); BILIRUBIN,TOTAL 0.2 mg/dL (0.1-1.0); CALCIUM, TOTAL 8.8 mg/dL (8.8-10.5); CARBON DIOXIDE 29 mmol/L (22-29); CHLORIDE 112 mmol/L (98-107); CHOL/HDL RATIO 3.8 (4.2-7.3); CREATININE 1.18 mg/dL (0.60-1.30); GLOMERULAR FILTR. RATE CALC > 60 mL/min (>60); POTASSIUM 4.1 mmol/L (3.5-5.1); SODIUM SERUM 149 mmol/L (136-145); TOTAL PROTEIN, SERUM 6.8 g/dL (6.4-8.2); UREA NITROGEN, BLOOD 15 mg/dL (7-18)
[2017-02-22 12:08] LABS: THYROID STIMULATING HORMONE 1.06 uIU/mL (0.36-3.74)
[2017-02-22 16:00] VITALS: BP 110/63
[2017-02-22] MEDS: ZIPRASIDONE HCL 40 MG CAPSULE PO SCH (16:32)
[2017-02-23] MEDS: ZIPRASIDONE HCL 40 MG CAPSULE PO SCH ×2 (06:36→16:42)
[2017-02-23 07:08] VITALS: BP 110/70
[2017-02-23 09:00] VITALS: BP 110/62
[2017-02-23] MEDS: FLUoxetine HCL 20 MG CAPSULE PO SCH (09:12)
[2017-02-23 16:05] VITALS: BP 114/70
[2017-02-23] MEDS: LORazepam 2 MG TABLET PO PRN (16:42)
[2017-02-24 06:08] VITALS: BP 106/60
[2017-02-24] MEDS: ZIPRASIDONE HCL 40 MG CAPSULE PO SCH ×2 (06:52→16:53)
[2017-02-24 08:21] VITALS: BP 137/80
[2017-02-24] MEDS: FLUoxetine HCL 20 MG CAPSULE PO SCH (09:15)
[2017-02-24 16:32] VITALS: BP 117/71
[2017-02-24] MEDS: LORazepam 2 MG TABLET PO PRN (16:53)
[2017-02-25 05:56] VITALS: BP 119/76
[2017-02-25] MEDS: ZIPRASIDONE HCL 40 MG CAPSULE PO SCH ×2 (06:33→16:03)
[2017-02-25] MEDS: LORazepam 2 MG TABLET PO PRN ×3 (08:12→21:45)
[2017-02-25] MEDS: FLUoxetine HCL 20 MG CAPSULE PO SCH (08:12)
[2017-02-25 08:22] VITALS: BP 109/62
[2017-02-25 16:16] VITALS: BP 134/73
[2017-02-25] MEDS: ZOLPIDEM TARTRATE 10 MG TABLET PO PRN (21:45)
[2017-02-26] MEDS: ZIPRASIDONE HCL 40 MG CAPSULE PO SCH ×2 (06:29→16:22)
[2017-02-26 07:07] VITALS: BP 125/81
[2017-02-26 08:27] VITALS: BP 101/62
[2017-02-26] MEDS: FLUoxetine HCL 20 MG CAPSULE PO SCH (09:46)
[2017-02-26 16:13] VITALS: BP 115/68
[2017-02-26] MEDS: LORazepam 2 MG TABLET PO PRN (16:22)
[2017-02-27] MEDS: LORazepam 2 MG TABLET PO PRN ×2 (04:27→16:35)
[2017-02-27 05:37] VITALS: BP 118/74
[2017-02-27] MEDS: ZIPRASIDONE HCL 40 MG CAPSULE PO SCH ×2 (06:16→16:35)
[2017-02-27] MEDS: FLUoxetine HCL 20 MG CAPSULE PO SCH (08:51)
[2017-02-27 08:57] VITALS: BP 119/75
[2017-02-27 16:00] VITALS: BP 108/68
[2017-02-28 02:34] VITALS: BP 129/83
[2017-02-28] MEDS: ZOLPIDEM TARTRATE 10 MG TABLET PO PRN (02:36)
[2017-02-28] MEDS: LORazepam 2 MG TABLET PO PRN (02:36)
[2017-02-28] MEDS: ZIPRASIDONE HCL 40 MG CAPSULE PO SCH (06:26)
[2017-02-28 08:35] VITALS: BP 106/61
[2017-02-28] MEDS: FLUoxetine HCL 20 MG CAPSULE PO SCH (09:00)
== END 2017-02-28 13:43 | disposition home or self-care (01) | DRG 750 ==
LOC: B2S 20:45 → EDSTATUS 20:54 → B3A 02-22 11:05
PROVIDERS: ADMIT Psychiatry & Neurology Child & Adolescent Psychiatry; ATTEND Psychiatry & Neurology Child & Adolescent Psychiatry
DX: F25.1 Schizoaffective disorder, depressive type (principal); R45.851 Suicidal ideations; I10 Essential (primary) hypertension; E78.1 Pure hyperglyceridemia; R45.87 Impulsiveness; F41.9 Anxiety disorder, unspecified; Z90.49 Acquired absence of other specified parts of digestive tract; Z79.899 Other long term (current) drug therapy
CPT/HCPCS: 83036; 84439; 84443; 87081

== ENCOUNTER 2017-04-07 11:18 | Inpatient (IN) | payer MEDICAID ==
[~2017-04-07] VITALS: Ht 172.7 cm; Wt 80.6 kg
[~2017-04-07 11:18] MED LIST changes: -ZIPR40CA2 PO
[2017-04-07] MEDS ORDERED: ZOLPIDEM TARTRATE 10 MG TABLET PO PRN (15:00)
[2017-04-07 15:06] VITALS: BP 111/63
[2017-04-07] MEDS ORDERED: -PHARMACY VACCINE NOTE- MISC ONE ×2 (15:45)
[2017-04-07 16:15] VITALS: BP 122/60
[2017-04-07] MEDS: HALOPERIDOL 5 MG TABLET PO PRN (20:07)
[2017-04-07] MEDS: LORazepam 2 MG TABLET PO PRN (20:07)
[2017-04-07] MEDS: BENZOCAINE/MENTHOL LOZENGE PO PRN (21:15)
[2017-04-08] MEDS: BENZOCAINE/MENTHOL LOZENGE PO PRN ×2 (03:45→09:47)
[2017-04-08 06:39] VITALS: BP 117/69
[2017-04-08 08:25] LABS: BASOPHILS % (AUTO) 0.5 % (0.0-2.0); EOSINOPHILS % (AUTO) 2.1 % (1.0-6.0); HEMATOCRIT 45.1 % (41-53); HEMOGLOBIN 15.1 g/dL (13.5-17.5); LYMPHOCYTES # (AUTO) 1.3 K/uL (1.0-4.8); LYMPHOCYTES % (AUTO) 12.9 % (22.0-44.0); MEAN CORPUSCULAR HEMOGLOBIN 28.8 pg (26.0-34.0); MEAN CORPUSCULAR HGB CONC 33.5 G/dL (31.0-37.0); MEAN CORPUSCULAR VOLUME 86 fL (80-100); MONOCYTES # (AUTO) 1.1 K/uL (0.1-1.0); MONOCYTES % (AUTO) 11.1 % (2.0-9.0); NEUTROPHILS # (AUTO) 7.5 K/uL (1.8-7.7); NEUTROPHILS % (AUTO) 73.4 % (40.0-70.0); PLATELET COUNT (AUTO) 219 K/uL (150-450); RED BLOOD CELL COUNT(AUTO) 5.24 MIL/uL (4.50-5.90); RED CELL DISTRIBUTION WIDTH 14.3 % (11.5-14.5); WHITE BLOOD COUNT (AUTO) 10.2 K/uL (4.5-11.0)
[2017-04-08 08:36] VITALS: BP 114/68
[2017-04-08 08:55] LABS: ALANINE AMINOTRANSFERASE 35 U/L (12-78); ALBUMIN 3.8 g/dL (3.4-5.0); ANION GAP 8 mmol/L (8-16); ASPARTATE AMINOTRANSFERASE 20 U/L (15-37); BILIRUBIN,TOTAL 0.7 mg/dL (0.1-1.0); CALCIUM, TOTAL 9.1 mg/dL (8.8-10.5); CARBON DIOXIDE 29 mmol/L (22-29); CHLORIDE 106 mmol/L (98-107); CREATININE 1.33 mg/dL (0.60-1.30); GLOMERULAR FILTR. RATE CALC > 60 mL/min (>60); HEMOGLOBIN A1C 5.6 % (4.5-6.2); POTASSIUM 4.4 mmol/L (3.5-5.1); SODIUM SERUM 143 mmol/L (136-145); TOTAL PROTEIN, SERUM 7.2 g/dL (6.4-8.2); UREA NITROGEN, BLOOD 12 mg/dL (7-18)
[2017-04-08] MEDS: HALOPERIDOL 5 MG TABLET PO PRN (09:46)
[2017-04-08] MEDS: LORazepam 2 MG TABLET PO PRN (09:46)
[2017-04-08] MEDS ORDERED: AZITHROMYCIN 250 MG TABLET PO ONE (10:00)
[2017-04-08] MEDS ORDERED: GuaiFENesin/D-METHORPHAN [SUGAR-FREE] 200-20MG/10 ML SYRUP UDCUP PO PRN (10:00)
[2017-04-08] MEDS: FLUoxetine HCL 20 MG CAPSULE PO SCH (12:52)
[2017-04-08] MEDS ORDERED: IBUPROFEN 600 MG TABLET PO PRN (13:30)
[2017-04-08] MEDS ORDERED: ACETAMINOPHEN 325 MG TABLET PO PRN (13:30)
[2017-04-08 16:00] VITALS: BP 121/68
[2017-04-08] MEDS: ZIPRASIDONE HCL 40 MG CAPSULE PO SCH (16:19)
[2017-04-09] MEDS: BENZOCAINE/MENTHOL LOZENGE PO PRN (05:48)
[2017-04-09] MEDS: ZIPRASIDONE HCL 40 MG CAPSULE PO SCH ×2 (06:20→16:12)
[2017-04-09] MEDS: FLUoxetine HCL 20 MG CAPSULE PO SCH (08:18)
[2017-04-09] MEDS: LORazepam 2 MG TABLET PO PRN ×2 (08:18→16:12)
[2017-04-09] MEDS: AZITHROMYCIN 250 MG TABLET PO SCH (08:18)
[2017-04-09 08:29] VITALS: BP 109/56
[2017-04-09 16:20] VITALS: BP 113/69
[2017-04-10 05:40] VITALS: BP 136/77
[2017-04-10] MEDS: BENZOCAINE/MENTHOL LOZENGE PO PRN (05:46)
[2017-04-10] MEDS: ZIPRASIDONE HCL 40 MG CAPSULE PO SCH ×2 (06:11→16:51)
[2017-04-10 08:15] VITALS: BP 117/71
[2017-04-10] MEDS: LORazepam 2 MG TABLET PO PRN ×2 (09:10→16:51)
[2017-04-10] MEDS: FLUoxetine HCL 20 MG CAPSULE PO SCH (09:19)
[2017-04-10] MEDS: AZITHROMYCIN 250 MG TABLET PO SCH (09:19)
[2017-04-10 16:07] VITALS: BP 142/80
[2017-04-11 03:16] VITALS: BP 139/81
[2017-04-11] MEDS: ZIPRASIDONE HCL 40 MG CAPSULE PO SCH ×2 (06:29→16:23)
[2017-04-11 08:44] VITALS: BP 139/70
[2017-04-11] MEDS: FLUoxetine HCL 20 MG CAPSULE PO SCH (09:28)
[2017-04-11] MEDS: LORazepam 2 MG TABLET PO PRN (09:29)
[2017-04-11] MEDS: AZITHROMYCIN 250 MG TABLET PO SCH (09:29)
[2017-04-11 16:00] VITALS: BP 132/69
[2017-04-12 01:59] VITALS: BP 129/78
[2017-04-12] MEDS: ZIPRASIDONE HCL 40 MG CAPSULE PO SCH ×2 (06:20→16:04)
[2017-04-12] MEDS: LORazepam 2 MG TABLET PO PRN ×2 (08:27→16:04)
[2017-04-12] MEDS: FLUoxetine HCL 20 MG CAPSULE PO SCH (08:27)
[2017-04-12] MEDS: AZITHROMYCIN 250 MG TABLET PO SCH (08:27)
[2017-04-12 08:29] VITALS: BP 127/68
[2017-04-12 16:00] VITALS: BP 124/69
[2017-04-12] MEDS: HALOPERIDOL 5 MG TABLET PO PRN (16:04)
[2017-04-13 06:41] VITALS: BP 128/70
[2017-04-13] MEDS: ZIPRASIDONE HCL 40 MG CAPSULE PO SCH (07:09)
[2017-04-13] MEDS ORDERED: ZIPR40CA2 PO (07:20)
== END 2017-04-13 08:00 | disposition home or self-care (01) | DRG 750 ==
LOC: B3A 15:04 → EDSTATUS 15:35 → B3A 20:46
PROVIDERS: ADMIT Psychiatry & Neurology Psychiatry; ATTEND Psychiatry & Neurology Psychiatry
DX: F25.0 Schizoaffective disorder, bipolar type (principal); R45.851 Suicidal ideations; Z59.0 Homelessness; F17.200 Nicotine dependence, unspecified, uncomplicated; R45.84 Anhedonia; R45.87 Impulsiveness; Z90.49 Acquired absence of other specified parts of digestive tract; Z91.5 Personal history of self-harm; Z79.2 Long term (current) use of antibiotics; Z72.89 Other problems related to lifestyle
CPT/HCPCS: 83036; 84439; 84443; 87081

== ENCOUNTER 2017-07-14 18:54 | Inpatient (IN) | payer MEDICAID ==
[~2017-07-14] VITALS: Ht 172.7 cm; Wt 77.6 kg
[~2017-07-14 18:54] MED LIST changes: +ZIPR40CA2 PO
[2017-07-14] MEDS ORDERED: ZOLPIDEM TARTRATE 10 MG TABLET PO PRN (20:00)
[2017-07-14 20:22] VITALS: BP 136/79
[2017-07-14 20:43] VITALS: BP 130/67
[2017-07-15 06:26] VITALS: BP 107/66
[2017-07-15 08:45] VITALS: BP 125/66
[2017-07-15 08:55] LABS: BASOPHILS % (AUTO) 0.3 % (0.0-2.0); EOSINOPHILS % (AUTO) 2.8 % (1.0-6.0); HEMATOCRIT 45.8 % (41-53); HEMOGLOBIN 15.1 g/dL (13.5-17.5); LYMPHOCYTES # (AUTO) 1.3 K/uL (1.0-4.8); MEAN CORPUSCULAR HGB CONC 33.1 G/dL (31.0-37.0); MEAN CORPUSCULAR VOLUME 88 fL (80-100); MONOCYTES # (AUTO) 0.4 K/uL (0.1-1.0); MONOCYTES % (AUTO) 5.1 % (2.0-9.0); NEUTROPHILS # (AUTO) 5.6 K/uL (1.8-7.7); NEUTROPHILS % (AUTO) 74.8 % (40.0-70.0); PLATELET COUNT (AUTO) 316 K/uL (150-450); RED BLOOD CELL COUNT(AUTO) 5.22 MIL/uL (4.50-5.90); WHITE BLOOD COUNT (AUTO) 7.6 K/uL (4.5-11.0)
[2017-07-15] MEDS: LORazepam 2 MG TABLET PO PRN ×2 (09:24→16:55)
[2017-07-15] MEDS: HALOPERIDOL 5 MG TABLET PO PRN ×2 (09:24→16:55)
[2017-07-15 09:44] LABS: HEMOGLOBIN A1C 5.5 % (4.5-6.2)
[2017-07-15 09:53] LABS: CHOL/HDL RATIO 3.9 (4.2-7.3); THYROID STIMULATING HORMONE 0.97 uIU/mL (0.36-3.74)
[2017-07-15 10:02] LABS: APPEARANCE,URINE CLEAR (CLEAR); GLUCOSE, URINE (UA) NEGATIVE (NEGATIVE); KETONES,URINE TRACE mg/dL (NEGATIVE); LEUKOCYTE ESTERASE ,URINE NEGATIVE (NEGATIVE); OCCULT BLOOD,URINE NEGATIVE (NEGATIVE); PROTEIN,URINE NEGATIVE (NEGATIVE)
[2017-07-15 10:06] LABS: ADD UA MICROSCOPIC NO
[2017-07-15] MEDS: FLUoxetine HCL 20 MG CAPSULE PO SCH (12:04)
[2017-07-15 16:00] VITALS: BP 115/65
[2017-07-15] MEDS: ZIPRASIDONE HCL 40 MG CAPSULE PO SCH (16:55)
[2017-07-16] MEDS: ZIPRASIDONE HCL 40 MG CAPSULE PO SCH ×2 (06:20→16:52)
[2017-07-16 06:51] VITALS: BP 116/72
[2017-07-16 08:43] VITALS: BP 103/50
[2017-07-16] MEDS: FLUoxetine HCL 20 MG CAPSULE PO SCH (09:55)
[2017-07-16] MEDS: LORazepam 2 MG TABLET PO PRN ×2 (09:55→16:53)
[2017-07-16 16:35] VITALS: BP 110/74
[2017-07-17 05:37] VITALS: BP 117/63
[2017-07-17] MEDS: ZIPRASIDONE HCL 40 MG CAPSULE PO SCH ×2 (06:17→16:41)
[2017-07-17] MEDS: FLUoxetine HCL 20 MG CAPSULE PO SCH (08:42)
[2017-07-17 09:46] VITALS: BP 136/74
[2017-07-17 16:27] VITALS: BP 131/70
[2017-07-17] MEDS: HALOPERIDOL 5 MG TABLET PO PRN (16:41)
[2017-07-17] MEDS: LORazepam 2 MG TABLET PO PRN (16:41)
[2017-07-18 03:07] VITALS: BP 135/68
[2017-07-18] MEDS: HALOPERIDOL 5 MG TABLET PO PRN (03:07)
[2017-07-18] MEDS: LORazepam 2 MG TABLET PO PRN ×2 (03:07→09:29)
[2017-07-18] MEDS: ZIPRASIDONE HCL 40 MG CAPSULE PO SCH (06:33)
[2017-07-18 08:39] VITALS: BP 135/86
[2017-07-18] MEDS: FLUoxetine HCL 20 MG CAPSULE PO SCH (09:29)
== END 2017-07-18 14:00 | disposition home or self-care (01) | DRG 750 ==
LOC: B3A 19:15 → EDSTATUS 19:44
PROVIDERS: ADMIT Psychiatry & Neurology Child & Adolescent Psychiatry; ATTEND Psychiatry & Neurology Child & Adolescent Psychiatry
DX: F25.1 Schizoaffective disorder, depressive type (principal); R45.851 Suicidal ideations; Z59.0 Homelessness; Z91.5 Personal history of self-harm
CPT/HCPCS: 80307; 83036; 84439; 84443; 99285

== ENCOUNTER 2017-07-29 22:11 | Inpatient (IN) | payer MEDICAID ==
[~2017-07-29] VITALS: Ht 172.7 cm; Wt 78.5 kg
[2017-07-30 01:29] VITALS: BP 135/83
[2017-07-30] MEDS ORDERED: ZOLPIDEM TARTRATE 10 MG TABLET PO PRN (01:30)
[2017-07-30 02:15] VITALS: BP 127/64
[2017-07-30] MEDS ORDERED: INFLUENZA VIRUS VACCINE QVS 2017-18 (3YR+)/PF 60 MCG/0.5 ML SYRINGE IM ONE (03:30)
[2017-07-30 08:23] VITALS: BP 135/71
[2017-07-30 08:27] LABS: BASOPHILS % (AUTO) 0.8 % (0.0-2.0); EOSINOPHILS % (AUTO) 3.4 % (1.0-6.0); HEMATOCRIT 43.9 % (41-53); HEMOGLOBIN 14.4 g/dL (13.5-17.5); LYMPHOCYTES # (AUTO) 2.3 K/uL (1.0-4.8); LYMPHOCYTES % (AUTO) 42.1 % (22.0-44.0); MEAN CORPUSCULAR HEMOGLOBIN 28.6 pg (26.0-34.0); MEAN CORPUSCULAR HGB CONC 32.8 G/dL (31.0-37.0); MEAN CORPUSCULAR VOLUME 87 fL (80-100); MONOCYTES # (AUTO) 0.4 K/uL (0.1-1.0); MONOCYTES % (AUTO) 6.5 % (2.0-9.0); NEUTROPHILS # (AUTO) 2.6 K/uL (1.8-7.7); NEUTROPHILS % (AUTO) 47.2 % (40.0-70.0); PLATELET COUNT (AUTO) 264 K/uL (150-450); RED BLOOD CELL COUNT(AUTO) 5.04 MIL/uL (4.50-5.90); RED CELL DISTRIBUTION WIDTH 13.4 % (11.5-14.5); WHITE BLOOD COUNT (AUTO) 5.6 K/uL (4.5-11.0)
[2017-07-30 08:37] LABS: APPEARANCE,URINE TURBID (CLEAR); GLUCOSE, URINE (UA) NEGATIVE (NEGATIVE); KETONES,URINE NEGATIVE (NEGATIVE); LEUKOCYTE ESTERASE ,URINE NEGATIVE (NEGATIVE); OCCULT BLOOD,URINE NEGATIVE (NEGATIVE); PROTEIN,URINE NEGATIVE (NEGATIVE)
[2017-07-30 08:52] LABS: HEMOGLOBIN A1C 6.1 % (4.5-6.2)
[2017-07-30 08:57] LABS: ALANINE AMINOTRANSFERASE 28 U/L (12-78); ALBUMIN 3.5 g/dL (3.4-5.0); ANION GAP 5 mmol/L (8-16); ASPARTATE AMINOTRANSFERASE 17 U/L (15-37); BILIRUBIN,TOTAL 0.3 mg/dL (0.1-1.0); CALCIUM, TOTAL 8.7 mg/dL (8.8-10.5); CARBON DIOXIDE 32 mmol/L (22-29); CHLORIDE 110 mmol/L (98-107); CHOL/HDL RATIO 3.9 (4.2-7.3); GLOMERULAR FILTR. RATE CALC > 60 mL/min (>60); POTASSIUM 3.5 mmol/L (3.5-5.1); SODIUM SERUM 147 mmol/L (136-145); THYROID STIMULATING HORMONE 1.09 uIU/mL (0.36-3.74); TOTAL PROTEIN, SERUM 6.8 g/dL (6.4-8.2); UREA NITROGEN, BLOOD 9 mg/dL (7-18)
[2017-07-30 09:53] LABS: ADD UA MICROSCOPIC YES
[2017-07-30 09:54] LABS: RBC,URINE None Seen /HPF (0-2); WBC,URINE 0-2 /HPF (0-5)
[2017-07-30 09:55] LABS: AMORPHOUS SEDIMENT,UR Many /LPF (None Seen); CALCIUM OXALATE CRYSTALS,UR Moderate /LPF (None Seen)
[2017-07-30] MEDS: FLUoxetine HCL 20 MG CAPSULE PO SCH (13:40)
[2017-07-30 16:19] VITALS: BP 133/80
[2017-07-30] MEDS ORDERED: ZIPRASIDONE HCL 40 MG CAPSULE PO SCH (17:00)
[2017-07-30] MEDS: ZIPRASIDONE HCL 40 MG CAPSULE PO SCH (17:10)
[2017-07-31 06:32] VITALS: BP 114/61
[2017-07-31] MEDS: ZIPRASIDONE HCL 40 MG CAPSULE PO SCH ×2 (06:38→16:59)
[2017-07-31 08:13] VITALS: BP 125/69
[2017-07-31] MEDS ORDERED: FLUoxetine HCL 20 MG CAPSULE PO SCH (09:00)
[2017-07-31] MEDS: FLUoxetine HCL 20 MG CAPSULE PO SCH (09:16)
[2017-07-31 16:05] VITALS: BP 122/75
[2017-07-31] MEDS: LORazepam 2 MG TABLET PO PRN (16:59)
[2017-07-31] MEDS: HALOPERIDOL 5 MG TABLET PO PRN (16:59)
[2017-08-01 00:42] VITALS: BP 134/78
[2017-08-01] MEDS: ZIPRASIDONE HCL 40 MG CAPSULE PO SCH ×2 (06:52→16:39)
[2017-08-01 08:05] VITALS: BP 109/62
[2017-08-01] MEDS: LORazepam 2 MG TABLET PO PRN ×2 (09:25→16:39)
[2017-08-01] MEDS: FLUoxetine HCL 20 MG CAPSULE PO SCH (09:25)
[2017-08-01 16:00] VITALS: BP 114/67
[2017-08-01] MEDS: HALOPERIDOL 5 MG TABLET PO PRN (16:39)
[2017-08-02 00:30] VITALS: BP 132/72
[2017-08-02] MEDS: ZIPRASIDONE HCL 40 MG CAPSULE PO SCH ×2 (06:34→17:18)
[2017-08-02] MEDS: FLUoxetine HCL 20 MG CAPSULE PO SCH (08:29)
[2017-08-02] MEDS: LORazepam 2 MG TABLET PO PRN ×2 (08:29→17:18)
[2017-08-02] MEDS: HALOPERIDOL 5 MG TABLET PO PRN ×2 (08:30→17:18)
[2017-08-02 08:36] VITALS: BP 114/68
[2017-08-02 16:40] VITALS: BP 135/70
[2017-08-03 01:11] VITALS: BP 141/76
[2017-08-03] MEDS: ZIPRASIDONE HCL 40 MG CAPSULE PO SCH ×2 (06:36→16:11)
[2017-08-03 08:24] VITALS: BP 106/67
[2017-08-03] MEDS: FLUoxetine HCL 20 MG CAPSULE PO SCH (08:38)
[2017-08-03 16:00] VITALS: BP 126/70
[2017-08-03] MEDS: HALOPERIDOL 5 MG TABLET PO PRN ×2 (16:11→23:58)
[2017-08-03] MEDS: LORazepam 2 MG TABLET PO PRN ×2 (16:11→21:01)
[2017-08-03] MEDS ORDERED: BENZTROPINE MESYLATE 2 MG TABLET PO ONE (18:45)
[2017-08-03] MEDS ORDERED: DiphenhydrAMINE HCL 50 MG/ML VIAL IM ONE (18:45)
[2017-08-03 18:50] VITALS: BP 132/76
[2017-08-03] MEDS ORDERED: BENZ0.5T6 PO (23:01)
[2017-08-04] MEDS: LORazepam 2 MG TABLET PO PRN (05:12)
[2017-08-04 05:16] VITALS: BP 128/81
[2017-08-04] MEDS: ZIPRASIDONE HCL 40 MG CAPSULE PO SCH (06:32)
[2017-08-04] MEDS ORDERED: BENZTROPINE MESYLATE 0.5 MG TABLET PO SCH (09:00)
== END 2017-08-04 07:16 | disposition home or self-care (01) | DRG 750 ==
LOC: B3A 07-30 02:03
PROVIDERS: ADMIT Psychiatry & Neurology Psychiatry; ATTEND Psychiatry & Neurology Child & Adolescent Psychiatry
DX: F25.0 Schizoaffective disorder, bipolar type (principal); F29 Unspecified psychosis not due to a substance or known physiological condition; R45.851 Suicidal ideations; F17.200 Nicotine dependence, unspecified, uncomplicated; F41.9 Anxiety disorder, unspecified; Z59.0 Homelessness; Z91.19 Patient's noncompliance with other medical treatment and regimen; Z91.5 Personal history of self-harm; Z28.21 Immunization not carried out because of patient refusal
CPT/HCPCS: 80307; 83036; 84439; 84443; 87081; 99285; J1200

== ENCOUNTER 2017-08-13 13:38 | Inpatient (IN) | payer MEDICAID, OTHER ==
[~2017-08-13] VITALS: Ht 172.7 cm; Wt 79.2 kg
[~2017-08-13 13:38] MED LIST changes: +BENZ0.5T6 PO
[2017-08-13] MEDS ORDERED: DIVA500T35 PO (14:05)
[2017-08-13 14:12] LABS: BASOPHILS # (AUTO) 0.04 K/uL (0.00-0.20); BASOPHILS % (AUTO) 0.6 % (0.0-2.0); EOSINOPHILS % (AUTO) 1.35 % (1.0-6.0); HEMATOCRIT 45.1 % (41-53); HEMOGLOBIN 14.7 g/dL (13.5-17.5); LYMPHOCYTES # (AUTO) 1.6 K/uL (1.0-4.8); LYMPHOCYTES % (AUTO) 22.4 % (22.0-44.0); MEAN CORPUSCULAR HEMOGLOBIN 28.4 pg (26.0-34.0); MEAN CORPUSCULAR HGB CONC 32.5 G/dL (31.0-37.0); MEAN CORPUSCULAR VOLUME 87 fL (80-100); MONOCYTES # (AUTO) 0.4 K/uL (0.1-1.0); MONOCYTES % (AUTO) 5.8 % (2.0-9.0); NEUTROPHILS % (AUTO) 69.9 % (40.0-70.0); PLATELET COUNT (AUTO) 201 K/uL (150-450); RED BLOOD CELL COUNT(AUTO) 5.16 MIL/uL (4.50-5.90); WHITE BLOOD COUNT (AUTO) 7.2 K/uL (4.5-11.0)
[2017-08-13 14:26] LABS: ANION GAP 6 mmol/L (8-16); CALCIUM, TOTAL 8.9 mg/dL (8.8-10.5); CARBON DIOXIDE 29 mmol/L (22-29); CHLORIDE 107 mmol/L (98-107); CREATININE 1.13 mg/dL (0.60-1.30); GLOMERULAR FILTR. RATE CALC > 60 mL/min (>60); POTASSIUM 3.9 mmol/L (3.5-5.1); SODIUM SERUM 142 mmol/L (136-145); UREA NITROGEN, BLOOD 13 mg/dL (7-18)
[2017-08-13 14:31] LABS: ALANINE AMINOTRANSFERASE 31 U/L (12-78); ALBUMIN 3.9 g/dL (3.4-5.0); ASPARTATE AMINOTRANSFERASE 23 U/L (15-37); BILIRUBIN,TOTAL 0.6 mg/dL (0.1-1.0); TOTAL PROTEIN, SERUM 7.4 g/dL (6.4-8.2)
[2017-08-13 17:43] VITALS: BP 124/75
[2017-08-13] MEDS ORDERED: INFLUENZA VIRUS VACCINE QVS 2017-18 (3YR+)/PF 60 MCG/0.5 ML SYRINGE IM ONE (18:45)
[2017-08-13] MEDS ORDERED: -PHARMACY VACCINE NOTE- MISC ONE ×2 (18:45)
[2017-08-13] MEDS: ZIPRASIDONE HCL 40 MG CAPSULE PO SCH (20:58)
[2017-08-13] MEDS: BENZTROPINE MESYLATE 0.5 MG TABLET PO SCH (20:58)
[2017-08-13] MEDS: ZOLPIDEM TARTRATE 10 MG TABLET PO PRN (20:58)
[2017-08-14 06:30] VITALS: BP 122/76
[2017-08-14] MEDS: ZIPRASIDONE HCL 40 MG CAPSULE PO SCH ×2 (06:35→16:12)
[2017-08-14 07:51] LABS: BASOPHILS % (AUTO) 0.5 % (0.0-2.0); EOSINOPHILS % (AUTO) 2.8 % (1.0-6.0); HEMATOCRIT 46.4 % (41-53); HEMOGLOBIN 15.3 g/dL (13.5-17.5); LYMPHOCYTES # (AUTO) 1.5 K/uL (1.0-4.8); LYMPHOCYTES % (AUTO) 20.1 % (22.0-44.0); MEAN CORPUSCULAR HEMOGLOBIN 28.9 pg (26.0-34.0); MEAN CORPUSCULAR VOLUME 88 fL (80-100); MONOCYTES # (AUTO) 0.3 K/uL (0.1-1.0); MONOCYTES % (AUTO) 4.5 % (2.0-9.0); NEUTROPHILS # (AUTO) 5.3 K/uL (1.8-7.7); NEUTROPHILS % (AUTO) 72.1 % (40.0-70.0); PLATELET COUNT (AUTO) 221 K/uL (150-450); RED CELL DISTRIBUTION WIDTH 13.6 % (11.5-14.5); WHITE BLOOD COUNT (AUTO) 7.4 K/uL (4.5-11.0)
[2017-08-14 08:37] LABS: ALANINE AMINOTRANSFERASE 29 U/L (12-78); ALBUMIN 3.7 g/dL (3.4-5.0); ANION GAP 4 mmol/L (8-16); ASPARTATE AMINOTRANSFERASE 20 U/L (15-37); BILIRUBIN,TOTAL 0.6 mg/dL (0.1-1.0); CALCIUM, TOTAL 9.2 mg/dL (8.8-10.5); CARBON DIOXIDE 32 mmol/L (22-29); CHLORIDE 109 mmol/L (98-107); CREATININE 1.28 mg/dL (0.60-1.30); GLOMERULAR FILTR. RATE CALC > 60 mL/min (>60); POTASSIUM 3.9 mmol/L (3.5-5.1); SODIUM SERUM 145 mmol/L (136-145); THYROID STIMULATING HORMONE 1.53 uIU/mL (0.36-3.74); TOTAL PROTEIN, SERUM 7.2 g/dL (6.4-8.2); UREA NITROGEN, BLOOD 12 mg/dL (7-18)
[2017-08-14 08:50] VITALS: BP 109/55
[2017-08-14] MEDS: BENZTROPINE MESYLATE 0.5 MG TABLET PO SCH ×2 (09:17→16:12)
[2017-08-14] MEDS: FLUoxetine HCL 20 MG CAPSULE PO SCH (09:17)
[2017-08-14 16:33] VITALS: BP 115/64
[2017-08-14] MEDS: ZOLPIDEM TARTRATE 10 MG TABLET PO PRN (21:11)
[2017-08-15 06:13] VITALS: BP 118/73
[2017-08-15] MEDS: ZIPRASIDONE HCL 40 MG CAPSULE PO SCH ×2 (06:30→16:23)
[2017-08-15 08:16] VITALS: BP 126/78
[2017-08-15] MEDS: FLUoxetine HCL 20 MG CAPSULE PO SCH (08:44)
[2017-08-15] MEDS: BENZTROPINE MESYLATE 0.5 MG TABLET PO SCH ×2 (08:44→16:23)
[2017-08-15 16:00] VITALS: BP 135/72
[2017-08-15] MEDS: HALOPERIDOL 5 MG TABLET PO PRN (16:23)
[2017-08-15] MEDS: LORazepam 2 MG TABLET PO PRN (16:23)
[2017-08-16 02:58] VITALS: BP 114/77
[2017-08-16] MEDS: ZIPRASIDONE HCL 40 MG CAPSULE PO SCH (06:11)
[2017-08-16 08:14] VITALS: BP 120/64
[2017-08-16] MEDS: LORazepam 2 MG TABLET PO PRN (09:04)
[2017-08-16] MEDS: FLUoxetine HCL 20 MG CAPSULE PO SCH (09:04)
[2017-08-16] MEDS: BENZTROPINE MESYLATE 0.5 MG TABLET PO SCH (09:04)
[2017-08-16] MEDS: HALOPERIDOL 5 MG TABLET PO PRN (09:04)
[2017-08-16] MEDS ORDERED: BENZ0.5T6 PO (12:34)
[2017-08-16] MEDS ORDERED: ZIPR40CA2 PO (12:34)
== END 2017-08-16 13:45 | disposition home or self-care (01) | DRG 750 ==
LOC: EMS 13:39 → B3A 14:55
PROVIDERS: ADMIT Psychiatry & Neurology Child & Adolescent Psychiatry; ATTEND Psychiatry & Neurology Child & Adolescent Psychiatry
DX: F25.1 Schizoaffective disorder, depressive type (principal); R45.851 Suicidal ideations; I10 Essential (primary) hypertension; F10.20 Alcohol dependence, uncomplicated; F41.9 Anxiety disorder, unspecified; F31.9 Bipolar disorder, unspecified
CPT/HCPCS: 84439; 84443; 87081; 99285; G0480

== ENCOUNTER 2017-09-07 15:35 | Inpatient (IN) | payer MEDICAID ==
[~2017-09-07] VITALS: Ht 172.7 cm; Wt 82.1 kg
[2017-09-07 17:00] VITALS: BP 134/73
[2017-09-07] MEDS ORDERED: ACETAMINOPHEN 325 MG TABLET PO PRN (17:00)
[2017-09-07] MEDS ORDERED: MAGNESIUM HYDROXIDE SUSPENSION 30 ML UDCUP PO PRN (17:00)
[2017-09-07] MEDS ORDERED: MAG HYDROX/AL HYDROX/SIMETH ES 30 ML SUSPENSION UDCUP PO PRN (17:00)
[2017-09-07] MEDS ORDERED: TUBERCULIN, PURIFIED PROTEIN DERIVATIVE 5 TU/0.1 ML SYG ID ONE (17:00)
[2017-09-07] MEDS ORDERED: LOPERAMIDE HCL 2 MG CAPSULE PO PRN (17:00)
[2017-09-07] MEDS ORDERED: PALIPERIDONE 3 MG ER TABLET PO PRN (17:00)
[2017-09-07] MEDS ORDERED: GuaiFENesin/D-METHORPHAN [SUGAR-FREE] 200-20MG/10 ML SYRUP UDCUP PO PRN (17:00)
[2017-09-07] MEDS ORDERED: PROMETHAZINE HCL 25 MG TABLET PO PRN (17:00)
[2017-09-07] MEDS ORDERED: INFLUENZA VIRUS VACCINE QVS 2017-18 (3YR+)/PF 60 MCG/0.5 ML SYRINGE IM ONE (18:45)
[2017-09-07 19:00] VITALS: BP 139/87
[2017-09-07] MEDS ORDERED: PALIPERIDONE PALMITATE 234 MG/1.5 ML SYRINGE IM ONE (21:00)
[2017-09-07] MEDS: THIAMINE HCL 100 MG TABLET PO SCH (21:02)
[2017-09-07] MEDS: LORazepam 2 MG TABLET PO PRN (21:03)
[2017-09-07] MEDS: ZOLPIDEM TARTRATE 10 MG TABLET PO PRN (21:03)
[2017-09-07] MEDS: PALIPERIDONE 3 MG ER TABLET PO SCH (21:04)
[2017-09-08 06:38] VITALS: BP 126/85
[2017-09-08 07:48] LABS: BASOPHILS % (AUTO) 0.7 % (0.0-2.0); EOSINOPHILS % (AUTO) 3.6 % (1.0-6.0); HEMATOCRIT 41.9 % (41-53); HEMOGLOBIN 13.9 g/dL (13.5-17.5); LYMPHOCYTES # (AUTO) 1.8 K/uL (1.0-4.8); LYMPHOCYTES % (AUTO) 31.2 % (22.0-44.0); MEAN CORPUSCULAR HGB CONC 33.3 G/dL (31.0-37.0); MEAN CORPUSCULAR VOLUME 87 fL (80-100); MONOCYTES # (AUTO) 0.4 K/uL (0.1-1.0); MONOCYTES % (AUTO) 6.3 % (2.0-9.0); NEUTROPHILS # (AUTO) 3.3 K/uL (1.8-7.7); NEUTROPHILS % (AUTO) 58.2 % (40.0-70.0); PLATELET COUNT (AUTO) 303 K/uL (150-450); RED CELL DISTRIBUTION WIDTH 13.9 % (11.5-14.5); WHITE BLOOD COUNT (AUTO) 5.7 K/uL (4.5-11.0)
[2017-09-08 07:53] LABS: HEMOGLOBIN A1C 5.8 % (4.5-6.2)
[2017-09-08 08:28] LABS: ALANINE AMINOTRANSFERASE 33 U/L (12-78); ALBUMIN 3.4 g/dL (3.4-5.0); ANION GAP 7 mmol/L (8-16); ASPARTATE AMINOTRANSFERASE 16 U/L (15-37); BILIRUBIN,TOTAL 0.2 mg/dL (0.1-1.0); CALCIUM, TOTAL 8.9 mg/dL (8.8-10.5); CARBON DIOXIDE 28 mmol/L (22-29); CHLORIDE 109 mmol/L (98-107); CREATININE 1.23 mg/dL (0.60-1.30); GLOMERULAR FILTR. RATE CALC > 60 mL/min (>60); POTASSIUM 3.9 mmol/L (3.5-5.1); SODIUM SERUM 144 mmol/L (136-145); THYROID STIMULATING HORMONE 0.79 uIU/mL (0.36-3.74); TOTAL PROTEIN, SERUM 6.8 g/dL (6.4-8.2); UREA NITROGEN, BLOOD 13 mg/dL (7-18)
[2017-09-08 08:37] LABS: CHOL/HDL RATIO 4.1 (4.2-7.3)
[2017-09-08] MEDS: MULTIVITAMINS WITH MINERALS, THERAPEUTIC TABLET PO SCH (09:10)
[2017-09-08] MEDS: NALTREXONE HCL 50 MG TABLET PO SCH (09:10)
[2017-09-08] MEDS: FLUoxetine HCL 20 MG CAPSULE PO SCH (09:10)
[2017-09-08] MEDS: FOLIC ACID 1 MG TABLET PO SCH (09:10)
[2017-09-08] MEDS: THIAMINE HCL 100 MG TABLET PO SCH ×2 (09:10→16:18)
[2017-09-08 09:14] VITALS: BP 97/49
[2017-09-08 16:00] VITALS: BP 109/68
[2017-09-08] MEDS: PALIPERIDONE 3 MG ER TABLET PO SCH (20:16)
[2017-09-08] MEDS: ZOLPIDEM TARTRATE 10 MG TABLET PO PRN (20:16)
[2017-09-09 06:41] VITALS: BP 112/68
[2017-09-09 08:16] VITALS: BP 111/66
[2017-09-09] MEDS: MULTIVITAMINS WITH MINERALS, THERAPEUTIC TABLET PO SCH (08:58)
[2017-09-09] MEDS: THIAMINE HCL 100 MG TABLET PO SCH ×2 (08:58→16:55)
[2017-09-09] MEDS: FLUoxetine HCL 20 MG CAPSULE PO SCH (08:58)
[2017-09-09] MEDS: FOLIC ACID 1 MG TABLET PO SCH (08:58)
[2017-09-09] MEDS: NALTREXONE HCL 50 MG TABLET PO SCH (08:59)
[2017-09-09 16:00] VITALS: BP 114/66
[2017-09-09] MEDS: LORazepam 2 MG TABLET PO PRN (16:55)
[2017-09-09] MEDS: PALIPERIDONE 3 MG ER TABLET PO SCH (20:52)
[2017-09-10 06:28] VITALS: BP 103/69
[2017-09-10 08:27] VITALS: BP 110/60
[2017-09-10] MEDS: NALTREXONE HCL 50 MG TABLET PO SCH (08:32)
[2017-09-10] MEDS: FLUoxetine HCL 20 MG CAPSULE PO SCH (08:32)
[2017-09-10] MEDS: MULTIVITAMINS WITH MINERALS, THERAPEUTIC TABLET PO SCH (08:32)
[2017-09-10] MEDS: THIAMINE HCL 100 MG TABLET PO SCH ×2 (08:32→17:07)
[2017-09-10] MEDS: FOLIC ACID 1 MG TABLET PO SCH (08:32)
[2017-09-10 16:15] VITALS: BP 111/64
[2017-09-10] MEDS: LORazepam 2 MG TABLET PO PRN (17:07)
[2017-09-10] MEDS: ZOLPIDEM TARTRATE 10 MG TABLET PO PRN (21:28)
[2017-09-10] MEDS: PALIPERIDONE 3 MG ER TABLET PO SCH (21:28)
[2017-09-11 05:40] VITALS: BP 133/83
[2017-09-11] MEDS: THIAMINE HCL 100 MG TABLET PO SCH ×2 (08:26→17:01)
[2017-09-11] MEDS: MULTIVITAMINS WITH MINERALS, THERAPEUTIC TABLET PO SCH (08:26)
[2017-09-11] MEDS: NALTREXONE HCL 50 MG TABLET PO SCH (08:26)
[2017-09-11] MEDS: LORazepam 2 MG TABLET PO PRN ×2 (08:26→17:01)
[2017-09-11] MEDS: FLUoxetine HCL 20 MG CAPSULE PO SCH (08:26)
[2017-09-11] MEDS: FOLIC ACID 1 MG TABLET PO SCH (08:26)
[2017-09-11] MEDS: HydrOXYzine PAMOATE 50 MG CAPSULE PO PRN ×2 (08:26→17:01)
[2017-09-11] MEDS ORDERED: PALIPERIDONE PALMITATE 156 MG/ML SYRINGE IM ONE (09:00)
[2017-09-11 10:13] VITALS: BP 116/80
[2017-09-11 16:37] VITALS: BP 110/65
[2017-09-11] MEDS: PALIPERIDONE 3 MG ER TABLET PO SCH (20:35)
[2017-09-12 04:59] VITALS: BP 107/63
[2017-09-12 08:14] VITALS: BP 133/66
[2017-09-12] MEDS: MULTIVITAMINS WITH MINERALS, THERAPEUTIC TABLET PO SCH (08:33)
[2017-09-12] MEDS: FLUoxetine HCL 20 MG CAPSULE PO SCH (08:33)
[2017-09-12] MEDS: THIAMINE HCL 100 MG TABLET PO SCH ×2 (08:33→16:06)
[2017-09-12] MEDS: FOLIC ACID 1 MG TABLET PO SCH (08:33)
[2017-09-12] MEDS: NALTREXONE HCL 50 MG TABLET PO SCH (08:33)
[2017-09-12 16:00] VITALS: BP 133/75
[2017-09-12] MEDS: LORazepam 2 MG TABLET PO PRN ×2 (16:06→20:40)
[2017-09-12] MEDS ORDERED: FLUO-191 PO (16:50)
[2017-09-12] MEDS ORDERED: NALT50TA PO (16:50)
[2017-09-12] MEDS ORDERED: PALI234D IM (16:51)
[2017-09-12] MEDS: PALIPERIDONE 3 MG ER TABLET PO SCH (20:40)
[2017-09-12] MEDS: ZOLPIDEM TARTRATE 10 MG TABLET PO PRN (20:40)
[2017-09-13 04:26] VITALS: BP 128/77
[2017-09-13 08:12] VITALS: BP 123/78
[2017-09-13] MEDS: MULTIVITAMINS WITH MINERALS, THERAPEUTIC TABLET PO SCH (08:16)
[2017-09-13] MEDS: FLUoxetine HCL 20 MG CAPSULE PO SCH (08:16)
[2017-09-13] MEDS: LORazepam 2 MG TABLET PO PRN (08:16)
[2017-09-13] MEDS: NALTREXONE HCL 50 MG TABLET PO SCH (08:16)
[2017-09-13] MEDS: FOLIC ACID 1 MG TABLET PO SCH (08:16)
[2017-09-13] MEDS: THIAMINE HCL 100 MG TABLET PO SCH (08:16)
[2017-09-13] MEDS ORDERED: PALI234D IM (08:30)
[2017-09-13] MEDS ORDERED: FLUO-191 PO (08:30)
[2017-09-13] MEDS ORDERED: NALT50TA6 PO (08:30)
== END 2017-09-13 09:45 | disposition home or self-care (01) | DRG 750 ==
LOC: B3A 17:00
PROVIDERS: ADMIT Psychiatry & Neurology Psychiatry; ATTEND Psychiatry & Neurology Psychiatry
PROC: 3E0234Z Introduction of Serum, Toxoid and Vaccine into Muscle, Percutaneous Approach (ICD-10-PCS; principal; 2017-09-07)
DX: F25.0 Schizoaffective disorder, bipolar type (principal); R45.851 Suicidal ideations; F22 Delusional disorders; Z91.19 Patient's noncompliance with other medical treatment and regimen; Z59.0 Homelessness; I10 Essential (primary) hypertension; Z79.899 Other long term (current) drug therapy; Z81.8 Family history of other mental and behavioral disorders; Z23 Encounter for immunization
CPT/HCPCS: 83036; 84439; 84443; 86592; 87081; 90471

== ENCOUNTER 2017-10-15 22:00 | Inpatient (IN) | payer MEDICAID ==
[~2017-10-15] VITALS: Ht 172.7 cm; Wt 86.4 kg
[~2017-10-15 22:00] MED LIST changes: -BENZ0.5T6 PO; +NALT50TA PO; +NALT50TA6 PO; +PALI234D IM; -ZIPR40CA2 PO
[2017-10-15] MEDS ORDERED: MAG HYDROX/AL HYDROX/SIMETH ES 30 ML SUSPENSION UDCUP PO PRN (22:45)
[2017-10-15] MEDS ORDERED: ACETAMINOPHEN 325 MG TABLET PO PRN (22:45)
[2017-10-15] MEDS ORDERED: LOPERAMIDE HCL 2 MG CAPSULE PO PRN (22:45)
[2017-10-15] MEDS ORDERED: QUEtiapine FUMARATE 100 MG TABLET PO PRN (22:45)
[2017-10-15] MEDS ORDERED: MAGNESIUM HYDROXIDE SUSPENSION 30 ML UDCUP PO PRN (22:45)
[2017-10-15] MEDS ORDERED: PROMETHAZINE HCL 25 MG TABLET PO PRN (22:45)
[2017-10-15 23:09] VITALS: BP 119/74
[2017-10-15] MEDS ORDERED: TRAZ-147 PO (23:12)
[2017-10-16 00:10] VITALS: BP_SYST 129; BP_SYST 139; BP_DIAS 78
[2017-10-16 08:58] VITALS: BP 117/66
[2017-10-16] MEDS: FLUoxetine HCL 20 MG CAPSULE PO SCH (09:16)
[2017-10-16] MEDS ORDERED: HydrOXYzine PAMOATE 50 MG CAPSULE PO PRN (13:15)
[2017-10-16] MEDS ORDERED: LOPERAMIDE HCL 2 MG CAPSULE PO PRN (13:15)
[2017-10-16] MEDS ORDERED: MAGNESIUM HYDROXIDE SUSPENSION 30 ML UDCUP PO PRN (13:15)
[2017-10-16] MEDS ORDERED: PALIPERIDONE 3 MG ER TABLET PO PRN (13:15)
[2017-10-16] MEDS ORDERED: PROMETHAZINE HCL 25 MG TABLET PO PRN (13:15)
[2017-10-16] MEDS ORDERED: PALIPERIDONE PALMITATE 234 MG/1.5 ML SYRINGE IM ONE (13:15)
[2017-10-16] MEDS ORDERED: ACETAMINOPHEN 325 MG TABLET PO PRN (13:15)
[2017-10-16] MEDS ORDERED: MAG HYDROX/AL HYDROX/SIMETH ES 30 ML SUSPENSION UDCUP PO PRN (13:15)
[2017-10-16] MEDS ORDERED: GuaiFENesin/D-METHORPHAN [SUGAR-FREE] 200-20MG/10 ML SYRUP UDCUP PO PRN (13:15)
[2017-10-16 16:13] VITALS: BP 105/64
[2017-10-16] MEDS: THIAMINE HCL 100 MG TABLET PO SCH (17:04)
[2017-10-16] MEDS: LORazepam 2 MG TABLET PO PRN (17:04)
[2017-10-16] MEDS: PALIPERIDONE 6 MG ER TABLET PO SCH (20:23)
[2017-10-16] MEDS: TraZODone HCL 100 MG TABLET PO SCH (20:23)
[2017-10-16] MEDS: ZOLPIDEM TARTRATE 10 MG TABLET PO PRN (20:23)
[2017-10-17 05:24] VITALS: BP 119/79
[2017-10-17 08:05] LABS: BASOPHILS # (AUTO) 0.02 K/uL (0.00-0.20); BASOPHILS % (AUTO) 0.4 % (0.0-2.0); EOSINOPHILS % (AUTO) 3.46 % (1.0-6.0); HEMATOCRIT 42.3 % (41-53); HEMOGLOBIN 13.6 g/dL (13.5-17.5); LYMPHOCYTES # (AUTO) 1.5 K/uL (1.0-4.8); MEAN CORPUSCULAR HEMOGLOBIN 28.2 pg (26.0-34.0); MEAN CORPUSCULAR HGB CONC 32.1 G/dL (31.0-37.0); MEAN CORPUSCULAR VOLUME 88 fL (80-100); MONOCYTES # (AUTO) 0.3 K/uL (0.1-1.0); MONOCYTES % (AUTO) 4.3 % (2.0-9.0); NEUTROPHILS # (AUTO) 3.8 K/uL (1.8-7.7); NEUTROPHILS % (AUTO) 65.8 % (40.0-70.0); PLATELET COUNT (AUTO) 265 K/uL (150-450); RED BLOOD CELL COUNT(AUTO) 4.83 MIL/uL (4.50-5.90); RED CELL DISTRIBUTION WIDTH 13.8 % (11.5-14.5)
[2017-10-17 08:16] VITALS: BP 118/68
[2017-10-17 08:27] LABS: ALANINE AMINOTRANSFERASE 43 U/L (12-78); ALBUMIN 3.5 g/dL (3.4-5.0); ALKALINE PHOSPHATASE 73 U/L (46-116); ANION GAP 6 mmol/L (8-16); ASPARTATE AMINOTRANSFERASE 21 U/L (15-37); BILIRUBIN,TOTAL 0.5 mg/dL (0.1-1.0); CALCIUM, TOTAL 9.2 mg/dL (8.8-10.5); CARBON DIOXIDE 31 mmol/L (22-29); CHLORIDE 108 mmol/L (98-107); CHOL/HDL RATIO 4.3 (4.2-7.3); CHOLESTEROL 179 mg/dL (131-200); CREATININE 1.29 mg/dL (0.60-1.30); FREE T4 (FREE THYROXINE) 0.71 ng/dL (0.76-1.46); GLOMERULAR FILTR. RATE CALC > 60 mL/min (>60); GLUCOSE,RANDOM 127 mg/dL (70-110); HDL CHOLESTEROL 42 mg/dL (40-60); LDL CHOL (CALC.) 121 mg/dL (0-130); POTASSIUM 4.1 mmol/L (3.5-5.1); SODIUM SERUM 145 mmol/L (136-145); THYROID STIMULATING HORMONE 0.93 uIU/mL (0.36-3.74); TOTAL PROTEIN, SERUM 7.5 g/dL (6.4-8.2); TRIGLYCERIDES 82 mg/dL (15-150); UREA NITROGEN, BLOOD 14 mg/dL (7-18)
[2017-10-17] MEDS: FLUoxetine HCL 20 MG CAPSULE PO SCH (08:42)
[2017-10-17] MEDS: MULTIVITAMINS WITH MINERALS, THERAPEUTIC TABLET PO SCH (08:42)
[2017-10-17] MEDS: THIAMINE HCL 100 MG TABLET PO SCH ×2 (08:42→16:15)
[2017-10-17] MEDS: NALTREXONE HCL 50 MG TABLET PO SCH (08:42)
[2017-10-17] MEDS: FOLIC ACID 1 MG TABLET PO SCH (08:42)
[2017-10-17 16:08] VITALS: BP 103/63
[2017-10-17] MEDS: LORazepam 2 MG TABLET PO PRN (16:15)
[2017-10-17] MEDS: ZOLPIDEM TARTRATE 10 MG TABLET PO PRN (20:23)
[2017-10-17] MEDS: PALIPERIDONE 6 MG ER TABLET PO SCH (20:23)
[2017-10-17] MEDS: TraZODone HCL 100 MG TABLET PO SCH (20:23)
[2017-10-18 00:32] VITALS: BP 121/78
[2017-10-18 08:00] VITALS: BP 129/68
[2017-10-18] MEDS: FOLIC ACID 1 MG TABLET PO SCH (09:34)
[2017-10-18] MEDS: NALTREXONE HCL 50 MG TABLET PO SCH (09:34)
[2017-10-18] MEDS: FLUoxetine HCL 20 MG CAPSULE PO SCH (09:34)
[2017-10-18] MEDS: MULTIVITAMINS WITH MINERALS, THERAPEUTIC TABLET PO SCH (09:34)
[2017-10-18] MEDS: THIAMINE HCL 100 MG TABLET PO SCH ×2 (09:34→16:12)
[2017-10-18] MEDS ORDERED: PALIPERIDONE PALMITATE 156 MG/ML SYRINGE IM SCH (13:15)
[2017-10-18 16:28] VITALS: BP 116/70
[2017-10-18] MEDS ORDERED: PALI6 PO (19:03)
[2017-10-18] MEDS: PALIPERIDONE 6 MG ER TABLET PO SCH (20:06)
[2017-10-18] MEDS: TraZODone HCL 100 MG TABLET PO SCH (20:06)
[2017-10-18] MEDS: ZOLPIDEM TARTRATE 10 MG TABLET PO PRN (20:06)
[2017-10-19 05:05] VITALS: BP 123/80
[2017-10-20] MEDS ORDERED: PALIPERIDONE PALMITATE 156 MG/ML SYRINGE IM ONE (09:00)
== END 2017-10-19 07:10 | disposition home or self-care (01) | DRG 750 ==
LOC: B3A 22:47 → EDSTATUS 23:06
PROVIDERS: ADMIT Psychiatry & Neurology Psychiatry; ATTEND Psychiatry & Neurology Psychiatry
DX: F25.9 Schizoaffective disorder, unspecified (principal); R45.851 Suicidal ideations; F15.20 Other stimulant dependence, uncomplicated; F32.9 Major depressive disorder, single episode, unspecified; F17.210 Nicotine dependence, cigarettes, uncomplicated; F12.20 Cannabis dependence, uncomplicated; I10 Essential (primary) hypertension; Z59.0 Homelessness; Z91.19 Patient's noncompliance with other medical treatment and regimen
CPT/HCPCS: 84439; 84443

== ENCOUNTER 2020-01-10 03:24 | Emergency (ER) | payer MEDICAID, OTHER ==
[~2020-01-10] VITALS: Ht 172.7 cm; Wt 89.5 kg
[~2020-01-10 03:24] MED LIST changes: -NALT50TA PO; +PALI6 PO; +TRAZ-257 PO
[2020-01-10 03:40] VITALS: BP 126/84
[2020-01-10] MEDS ORDERED: HydrOXYzine PAMOATE 50 MG CAPSULE PO ONE (03:45)
[2020-01-10 04:14] LABS: AMPHET/METH SCREEN,URINE NEGATIVE (NEGATIVE); BARBITURATE SCREEN, URINE NEGATIVE (NEGATIVE); BENZODIAZEPINES SCREEN,URINE NEGATIVE (NEGATIVE); CANNABINOID SCREEN,URINE NEGATIVE (NEGATIVE); COCAINE SCREEN,URINE NEGATIVE (NEGATIVE); METHADONE SCREEN, URINE NEGATIVE (NEGATIVE); OPIATE SCREEN,URINE NEGATIVE (NEGATIVE)
[2020-01-10 04:15] LABS: PHENCYCLIDINE SCREEN,URINE NEGATIVE (NEGATIVE)
== END 2020-01-10 04:25 | disposition home or self-care (01) ==
LOC: EMS 03:24
DX: F41.9 Anxiety disorder, unspecified (principal); F40.210 Arachnophobia; I10 Essential (primary) hypertension; F31.9 Bipolar disorder, unspecified; F20.9 Schizophrenia, unspecified; Z79.899 Other long term (current) drug therapy

== ENCOUNTER 2020-11-03 17:23 | Inpatient (IN) | payer OTHER ==
[~2020-11-03] VITALS: Ht 177.8 cm; Wt 88.7 kg
[~2020-11-03 17:23] MED LIST changes: -PALI6 PO; +PALI6TAB15 PO
[2020-11-03 21:36] LABS: BASOPHILS % (AUTO) 0.6 % (0.0-2.0); EOSINOPHILS % (AUTO) 0.2 % (1.0-6.0); HEMATOCRIT 46.1 % (41-53); LYMPHOCYTES # (AUTO) 0.6 K/uL (1.0-4.8); LYMPHOCYTES % (AUTO) 8.9 % (22.0-44.0); MEAN CORPUSCULAR HEMOGLOBIN 28.4 pg (26.0-34.0); MEAN CORPUSCULAR HGB CONC 32.4 G/dL (31.0-37.0); MEAN CORPUSCULAR VOLUME 88 fL (80-100); MONOCYTES # (AUTO) 0.8 K/uL (0.1-1.0); NEUTROPHILS # (AUTO) 4.9 K/uL (1.8-7.7); NEUTROPHILS % (AUTO) 77.3 % (40.0-70.0); PLATELET COUNT (AUTO) 188 K/uL (150-450); RED BLOOD CELL COUNT(AUTO) 5.26 MIL/uL (4.50-5.90); RED CELL DISTRIBUTION WIDTH 13.7 % (11.5-14.5)
[2020-11-03] MEDS ORDERED: ACETAMINOPHEN 500 MG TABLET PO ONE (21:45)
[2020-11-03 21:46] LABS: APPEARANCE,URINE CLEAR (CLEAR); BILIRUBIN,URINE NEGATIVE (NEGATIVE); GLUCOSE, URINE (UA) NEGATIVE (NEGATIVE); KETONES,URINE NEGATIVE (NEGATIVE); LEUKOCYTE ESTERASE ,URINE NEGATIVE (NEGATIVE); NITRATE,URINE NEGATIVE (NEGATIVE); OCCULT BLOOD,URINE SMALL (NEGATIVE); PROTEIN,URINE NEGATIVE (NEGATIVE); UROBILINOGEN,URINE 0.2 mg/dL (<=1.0)
[2020-11-03 21:47] LABS: ANION GAP 8 mmol/L (8-16); CARBON DIOXIDE 28 mmol/L (22-29); CHLORIDE 104 mmol/L (98-107); CREATININE 1.31 mg/dL (0.60-1.30); GLOMERULAR FILTR. RATE CALC > 60 mL/min (>60); GLUCOSE,RANDOM 97 mg/dL (70-110); POTASSIUM 3.7 mmol/L (3.5-5.1); SODIUM SERUM 140 mmol/L (136-145); UREA NITROGEN, BLOOD 9 mg/dL (7-18)
[2020-11-03 21:51] LABS: AMPHET/METH SCREEN,URINE NEGATIVE (NEGATIVE); BARBITURATE SCREEN, URINE NEGATIVE (NEGATIVE); BENZODIAZEPINES SCREEN,URINE NEGATIVE (NEGATIVE); CANNABINOID SCREEN,URINE NEGATIVE (NEGATIVE); COCAINE SCREEN,URINE NEGATIVE (NEGATIVE); METHADONE SCREEN, URINE NEGATIVE (NEGATIVE); OPIATE SCREEN,URINE NEGATIVE (NEGATIVE)
[2020-11-03 21:53] LABS: PHENCYCLIDINE SCREEN,URINE NEGATIVE (NEGATIVE)
[2020-11-03 21:54] LABS: ALANINE AMINOTRANSFERASE 120 U/L (12-78); ALBUMIN 3.9 g/dL (3.4-5.0); ALKALINE PHOSPHATASE 68 U/L (46-116); ASPARTATE AMINOTRANSFERASE 51 U/L (15-37); BILIRUBIN,TOTAL 0.7 mg/dL (0.1-1.0)
[2020-11-03 22:18] LABS: BACTERIA,URINE None Seen /HPF (None Seen); WBC,URINE 0-2 /HPF (0-5)
[2020-11-03 22:19] LABS: SQUAMOUS EPITHELIAL CELL,UR Rare /LPF (None Seen)
[2020-11-03 22:50] LABS: COVID AG,FIA SOURCE NASOPHARYNGEAL
[2020-11-03 23:11] LABS: VALPROIC ACID 4 mcg/mL (50-100)
[2020-11-03 23:25] LABS: INFLUENZA TYPE A NEGATIVE FOR TYPE A (NEGATIVE); INFLUENZA TYPE B NEGATIVE FOR TYPE B (NEGATIVE)
[2020-11-03] MEDS ORDERED: IBUPROFEN 800 MG TABLET PO ONE (23:30)
[2020-11-03] MEDS ORDERED: PB/HYOSCY/ATR/SCOP/LIDO/MAALOX 55 ML BOTTLE PO ONE (23:45)
[2020-11-04] MEDS ORDERED: ONDANSETRON HCL 4 MG/2 ML VIAL IVP PRN ×2 (00:15→00:30)
[2020-11-04] MEDS ORDERED: ACETAMINOPHEN 325 MG TABLET PO PRN (00:15)
[2020-11-04] MEDS ORDERED: 0.9% SODIUM CHLORIDE 10 ML SYRINGE IVP PRN (00:15)
[2020-11-04 04:02] VITALS: BP 115/59
[2020-11-04] MEDS ORDERED: -PHARMACY VACCINE NOTE- MISC ONE (04:30)
[2020-11-04] MEDS ORDERED: HEPARIN SODIUM,PORCINE 5,000 UNITS/ML VIAL IVP PRN ×2 (05:45)
[2020-11-04] MEDS ORDERED: HEPARIN SODIUM 25000 UNITS/D5W 250 ML IV PRN (05:45)
[2020-11-04 07:36] VITALS: BP 99/65
[2020-11-04] MEDS ORDERED: HEPARIN SODIUM,PORCINE 5,000 UNITS/ML VIAL SQ SCH (08:00)
[2020-11-04 08:34] LABS: BASOPHILS % (AUTO) 0.6 % (0.0-2.0); EOSINOPHILS % (AUTO) 0.2 % (1.0-6.0); HEMATOCRIT 47.2 % (41-53); HEMOGLOBIN 15.4 g/dL (13.5-17.5); LYMPHOCYTES % (AUTO) 19.8 % (22.0-44.0); MEAN CORPUSCULAR HEMOGLOBIN 28.6 pg (26.0-34.0); MEAN CORPUSCULAR HGB CONC 32.7 G/dL (31.0-37.0); MEAN CORPUSCULAR VOLUME 87 fL (80-100); MONOCYTES # (AUTO) 0.9 K/uL (0.1-1.0); MONOCYTES % (AUTO) 17.8 % (2.0-9.0); NEUTROPHILS # (AUTO) 3.2 K/uL (1.8-7.7); NEUTROPHILS % (AUTO) 61.6 % (40.0-70.0); PLATELET COUNT (AUTO) 185 K/uL (150-450); RED CELL DISTRIBUTION WIDTH 13.6 % (11.5-14.5)
[2020-11-04 09:00] LABS: PROTHROMBIN TIME 10.3 SEC (9.4-11.6)
[2020-11-04 09:09] LABS: ALANINE AMINOTRANSFERASE 103 U/L (12-78); ALBUMIN 3.7 g/dL (3.4-5.0); ALKALINE PHOSPHATASE 64 U/L (46-116); ANION GAP 2 mmol/L (8-16); ASPARTATE AMINOTRANSFERASE 43 U/L (15-37); BILIRUBIN,TOTAL 0.7 mg/dL (0.1-1.0); C-REACTIVE PROTEIN QUANT 0.58 mg/dL (0.00-0.30); CALCIUM, TOTAL 8.9 mg/dL (8.8-10.5); CARBON DIOXIDE 26 mmol/L (22-29); CHLORIDE 102 mmol/L (98-107); FERRITIN 109 ng/mL (26-388); GLOMERULAR FILTR. RATE CALC > 60 mL/min (>60); GLUCOSE,RANDOM 111 mg/dL (70-110); LACTATE DEHYDROGENASE 158 U/L (85-227); POTASSIUM 3.8 mmol/L (3.5-5.1); SODIUM SERUM 130 mmol/L (136-145); TOTAL PROTEIN, SERUM 7.7 g/dL (6.4-8.2); UREA NITROGEN, BLOOD 10 mg/dL (7-18)
[2020-11-04] MEDS: ACETAMINOPHEN 325 MG TABLET PO PRN ×3 (11:05→21:13)
[2020-11-04 16:07] VITALS: BP 119/67
[2020-11-04 20:02] VITALS: BP 125/67
[2020-11-04] MEDS: DiphenhydrAMINE HCL 25 MG CAPSULE PO PRN (21:14)
[2020-11-05 00:26] VITALS: BP 128/70
[2020-11-05 04:25] VITALS: BP 116/60
[2020-11-05 07:18] LABS: BASOPHILS % (AUTO) 0.8 % (0.0-2.0); EOSINOPHILS % (AUTO) 0.6 % (1.0-6.0); HEMOGLOBIN 15.7 g/dL (13.5-17.5); LYMPHOCYTES # (AUTO) 1.2 K/uL (1.0-4.8); MEAN CORPUSCULAR HEMOGLOBIN 28.5 pg (26.0-34.0); MEAN CORPUSCULAR HGB CONC 32.7 G/dL (31.0-37.0); MEAN CORPUSCULAR VOLUME 87 fL (80-100); MONOCYTES # (AUTO) 0.9 K/uL (0.1-1.0); MONOCYTES % (AUTO) 15.7 % (2.0-9.0); NEUTROPHILS # (AUTO) 3.5 K/uL (1.8-7.7); NEUTROPHILS % (AUTO) 61.9 % (40.0-70.0); PLATELET COUNT (AUTO) 194 K/uL (150-450); RED BLOOD CELL COUNT(AUTO) 5.51 MIL/uL (4.50-5.90); RED CELL DISTRIBUTION WIDTH 13.9 % (11.5-14.5)
[2020-11-05 08:07] LABS: ALANINE AMINOTRANSFERASE 79 U/L (12-78); ALBUMIN 3.7 g/dL (3.4-5.0); ALKALINE PHOSPHATASE 64 U/L (46-116); ANION GAP 11 mmol/L (8-16); ASPARTATE AMINOTRANSFERASE 30 U/L (15-37); BILIRUBIN,TOTAL 0.5 mg/dL (0.1-1.0); C-REACTIVE PROTEIN QUANT 0.31 mg/dL (0.00-0.30); CALCIUM, TOTAL 8.9 mg/dL (8.8-10.5); CARBON DIOXIDE 24 mmol/L (22-29); CHLORIDE 104 mmol/L (98-107); CREATININE 1.26 mg/dL (0.60-1.30); FERRITIN 117 ng/mL (26-388); GLOMERULAR FILTR. RATE CALC > 60 mL/min (>60); GLUCOSE,RANDOM 91 mg/dL (70-110); POTASSIUM 4.3 mmol/L (3.5-5.1); SODIUM SERUM 139 mmol/L (136-145); TOTAL PROTEIN, SERUM 7.7 g/dL (6.4-8.2); UREA NITROGEN, BLOOD 14 mg/dL (7-18)
[2020-11-05 08:08] VITALS: BP 113/69
[2020-11-05 08:35] LABS: D-DIMER 0.76 mg/L FEU (0.00-0.50)
[2020-11-05] MEDS: ACETAMINOPHEN 325 MG TABLET PO PRN ×3 (08:48→21:33)
[2020-11-05 12:36] VITALS: BP 118/64
[2020-11-05] MEDS: FLUoxetine HCL 20 MG CAPSULE PO SCH (12:47)
[2020-11-05 15:33] VITALS: BP 124/68
[2020-11-05 20:30] VITALS: BP 135/75
[2020-11-05] MEDS: PALIPERIDONE 3 MG ER TABLET PO SCH (21:33)
[2020-11-05] MEDS: TraZODone HCL 100 MG TABLET PO SCH (21:33)
[2020-11-06 05:45] VITALS: BP 114/54
[2020-11-06 07:50] VITALS: BP 115/56
[2020-11-06 08:09] LABS: BASOPHILS % (AUTO) 1.3 % (0.0-2.0); EOSINOPHILS % (AUTO) 0.4 % (1.0-6.0); HEMATOCRIT 45.8 % (41-53); LYMPHOCYTES # (AUTO) 0.8 K/uL (1.0-4.8); LYMPHOCYTES % (AUTO) 20.3 % (22.0-44.0); MEAN CORPUSCULAR HEMOGLOBIN 28.6 pg (26.0-34.0); MEAN CORPUSCULAR HGB CONC 32.7 G/dL (31.0-37.0); MEAN CORPUSCULAR VOLUME 87 fL (80-100); MONOCYTES # (AUTO) 0.4 K/uL (0.1-1.0); MONOCYTES % (AUTO) 11.1 % (2.0-9.0); NEUTROPHILS # (AUTO) 2.7 K/uL (1.8-7.7); NEUTROPHILS % (AUTO) 66.9 % (40.0-70.0); PLATELET COUNT (AUTO) 176 K/uL (150-450); RED BLOOD CELL COUNT(AUTO) 5.24 MIL/uL (4.50-5.90)
[2020-11-06 08:37] LABS: ALANINE AMINOTRANSFERASE 63 U/L (12-78); ALBUMIN 3.4 g/dL (3.4-5.0); ALKALINE PHOSPHATASE 59 U/L (46-116); ANION GAP 8 mmol/L (8-16); ASPARTATE AMINOTRANSFERASE 23 U/L (15-37); BILIRUBIN,TOTAL 0.4 mg/dL (0.1-1.0); C-REACTIVE PROTEIN QUANT 0.12 mg/dL (0.00-0.30); CALCIUM, TOTAL 8.6 mg/dL (8.8-10.5); CARBON DIOXIDE 28 mmol/L (22-29); CHLORIDE 105 mmol/L (98-107); CREATININE 1.27 mg/dL (0.60-1.30); FERRITIN 110 ng/mL (26-388); GLOMERULAR FILTR. RATE CALC > 60 mL/min (>60); GLUCOSE,RANDOM 105 mg/dL (70-110); POTASSIUM 4.4 mmol/L (3.5-5.1); SODIUM SERUM 141 mmol/L (136-145); TOTAL PROTEIN, SERUM 7.3 g/dL (6.4-8.2); UREA NITROGEN, BLOOD 12 mg/dL (7-18)
[2020-11-06 08:39] LABS: D-DIMER 0.42 mg/L FEU (0.00-0.50)
[2020-11-06] MEDS: DEXAMETHASONE 4 MG TABLET PO SCH (09:12)
[2020-11-06] MEDS: FLUoxetine HCL 20 MG CAPSULE PO SCH (09:13)
[2020-11-06 15:45] VITALS: BP 126/66
[2020-11-06 19:45] VITALS: BP 121/89
[2020-11-06] MEDS: TraZODone HCL 100 MG TABLET PO SCH (21:05)
[2020-11-06] MEDS: DiphenhydrAMINE HCL 25 MG CAPSULE PO PRN (21:05)
[2020-11-06] MEDS: PALIPERIDONE 3 MG ER TABLET PO SCH (21:05)
[2020-11-06] MEDS: ACETAMINOPHEN 325 MG TABLET PO PRN (21:06)
[2020-11-07 02:30] VITALS: BP 117/67
[2020-11-07 07:20] LABS: D-DIMER 0.34 mg/L FEU (0.00-0.50)
[2020-11-07 07:21] LABS: BASOPHILS % (AUTO) 0.4 % (0.0-2.0); EOSINOPHILS % (AUTO) 0 % (1.0-6.0); LYMPHOCYTES # (AUTO) 0.8 K/uL (1.0-4.8); LYMPHOCYTES % (AUTO) 9.3 % (22.0-44.0); MEAN CORPUSCULAR HEMOGLOBIN 28.4 pg (26.0-34.0); MEAN CORPUSCULAR HGB CONC 32.7 G/dL (31.0-37.0); MEAN CORPUSCULAR VOLUME 87 fL (80-100); MONOCYTES # (AUTO) 0.8 K/uL (0.1-1.0); MONOCYTES % (AUTO) 9.4 % (2.0-9.0); NEUTROPHILS # (AUTO) 6.7 K/uL (1.8-7.7); NEUTROPHILS % (AUTO) 80.9 % (40.0-70.0); PLATELET COUNT (AUTO) 215 K/uL (150-450); RED BLOOD CELL COUNT(AUTO) 5.29 MIL/uL (4.50-5.90); RED CELL DISTRIBUTION WIDTH 13.8 % (11.5-14.5)
[2020-11-07 07:47] LABS: ALANINE AMINOTRANSFERASE 60 U/L (12-78); ALBUMIN 3.4 g/dL (3.4-5.0); ALKALINE PHOSPHATASE 58 U/L (46-116); ANION GAP 10 mmol/L (8-16); ASPARTATE AMINOTRANSFERASE 23 U/L (15-37); BILIRUBIN,TOTAL 0.3 mg/dL (0.1-1.0); C-REACTIVE PROTEIN QUANT 0.05 mg/dL (0.00-0.30); CALCIUM, TOTAL 8.9 mg/dL (8.8-10.5); CARBON DIOXIDE 25 mmol/L (22-29); CHLORIDE 105 mmol/L (98-107); CREATININE 1.14 mg/dL (0.60-1.30); FERRITIN 117 ng/mL (26-388); GLOMERULAR FILTR. RATE CALC > 60 mL/min (>60); GLUCOSE,RANDOM 116 mg/dL (70-110); POTASSIUM 4.4 mmol/L (3.5-5.1); SODIUM SERUM 140 mmol/L (136-145); TOTAL PROTEIN, SERUM 7.6 g/dL (6.4-8.2); UREA NITROGEN, BLOOD 18 mg/dL (7-18)
[2020-11-07 08:00] VITALS: BP 115/66
[2020-11-07] MEDS: FLUoxetine HCL 20 MG CAPSULE PO SCH (08:46)
[2020-11-07] MEDS: DEXAMETHASONE 4 MG TABLET PO SCH (08:47)
[2020-11-07 16:00] VITALS: BP 142/73
[2020-11-07 20:15] VITALS: BP 127/74
[2020-11-07] MEDS: TraZODone HCL 100 MG TABLET PO SCH (20:18)
[2020-11-07] MEDS: PALIPERIDONE 3 MG ER TABLET PO SCH (20:18)
[2020-11-07] MEDS: DiphenhydrAMINE HCL 25 MG CAPSULE PO PRN (21:45)
[2020-11-07] MEDS: CALCIUM CARBONATE 500 MG CHEWABLE TABLET CHEW PRN (21:45)
[2020-11-07] MEDS: ACETAMINOPHEN 325 MG TABLET PO PRN (21:46)
[2020-11-08 00:30] VITALS: BP 140/90
[2020-11-08 05:45] VITALS: BP 113/74
[2020-11-08 06:29] LABS: BASOPHILS % (AUTO) 0.2 % (0.0-2.0); EOSINOPHILS % (AUTO) 0 % (1.0-6.0); HEMATOCRIT 43.9 % (41-53); HEMOGLOBIN 14.3 g/dL (13.5-17.5); LYMPHOCYTES # (AUTO) 1.3 K/uL (1.0-4.8); MEAN CORPUSCULAR HEMOGLOBIN 28.4 pg (26.0-34.0); MEAN CORPUSCULAR HGB CONC 32.7 G/dL (31.0-37.0); MEAN CORPUSCULAR VOLUME 87 fL (80-100); MONOCYTES # (AUTO) 0.8 K/uL (0.1-1.0); MONOCYTES % (AUTO) 8.1 % (2.0-9.0); NEUTROPHILS # (AUTO) 7.3 K/uL (1.8-7.7); NEUTROPHILS % (AUTO) 77.7 % (40.0-70.0); PLATELET COUNT (AUTO) 227 K/uL (150-450); RED BLOOD CELL COUNT(AUTO) 5.05 MIL/uL (4.50-5.90); RED CELL DISTRIBUTION WIDTH 13.5 % (11.5-14.5)
[2020-11-08 06:35] LABS: D-DIMER 0.25 mg/L FEU (0.00-0.50)
[2020-11-08 07:24] VITALS: BP 98/72
[2020-11-08 07:44] LABS: ALANINE AMINOTRANSFERASE 66 U/L (12-78); ALBUMIN 3.1 g/dL (3.4-5.0); ALKALINE PHOSPHATASE 57 U/L (46-116); ANION GAP 10 mmol/L (8-16); ASPARTATE AMINOTRANSFERASE 25 U/L (15-37); BILIRUBIN,TOTAL 0.3 mg/dL (0.1-1.0); C-REACTIVE PROTEIN QUANT 0.12 mg/dL (0.00-0.30); CALCIUM, TOTAL 8.7 mg/dL (8.8-10.5); CARBON DIOXIDE 25 mmol/L (22-29); CHLORIDE 105 mmol/L (98-107); CREATININE 1.03 mg/dL (0.60-1.30); FERRITIN 119 ng/mL (26-388); GLOMERULAR FILTR. RATE CALC > 60 mL/min (>60); GLUCOSE,RANDOM 149 mg/dL (70-110); SODIUM SERUM 140 mmol/L (136-145); TOTAL PROTEIN, SERUM 7.2 g/dL (6.4-8.2); UREA NITROGEN, BLOOD 16 mg/dL (7-18)
[2020-11-08] MEDS: FLUoxetine HCL 20 MG CAPSULE PO SCH (08:22)
[2020-11-08] MEDS: DEXAMETHASONE 4 MG TABLET PO SCH (08:22)
[2020-11-08 15:37] VITALS: BP 129/69
[2020-11-08 19:47] VITALS: BP 145/84
[2020-11-08] MEDS: ACETAMINOPHEN 325 MG TABLET PO PRN (19:52)
[2020-11-08] MEDS: TraZODone HCL 100 MG TABLET PO SCH (19:52)
[2020-11-08] MEDS: DiphenhydrAMINE HCL 25 MG CAPSULE PO PRN (19:52)
[2020-11-08] MEDS: CALCIUM CARBONATE 500 MG CHEWABLE TABLET CHEW PRN (19:52)
[2020-11-08] MEDS: PALIPERIDONE 3 MG ER TABLET PO SCH (19:52)
[2020-11-09 05:55] VITALS: BP 110/51
[2020-11-09 06:41] LABS: BASOPHILS % (AUTO) 0.2 % (0.0-2.0); EOSINOPHILS % (AUTO) 0 % (1.0-6.0); HEMATOCRIT 44.3 % (41-53); HEMOGLOBIN 14.7 g/dL (13.5-17.5); LYMPHOCYTES # (AUTO) 1.5 K/uL (1.0-4.8); LYMPHOCYTES % (AUTO) 15.5 % (22.0-44.0); MEAN CORPUSCULAR HEMOGLOBIN 28.8 pg (26.0-34.0); MEAN CORPUSCULAR HGB CONC 33.2 G/dL (31.0-37.0); MEAN CORPUSCULAR VOLUME 87 fL (80-100); MONOCYTES # (AUTO) 0.6 K/uL (0.1-1.0); MONOCYTES % (AUTO) 6.8 % (2.0-9.0); NEUTROPHILS # (AUTO) 7.3 K/uL (1.8-7.7); NEUTROPHILS % (AUTO) 77.5 % (40.0-70.0); PLATELET COUNT (AUTO) 240 K/uL (150-450); RED BLOOD CELL COUNT(AUTO) 5.11 MIL/uL (4.50-5.90); RED CELL DISTRIBUTION WIDTH 13.2 % (11.5-14.5)
[2020-11-09 07:08] LABS: ALANINE AMINOTRANSFERASE 94 U/L (12-78); ALBUMIN 3.3 g/dL (3.4-5.0); ALKALINE PHOSPHATASE 60 U/L (46-116); ANION GAP 11 mmol/L (8-16); ASPARTATE AMINOTRANSFERASE 34 U/L (15-37); BILIRUBIN,TOTAL 0.3 mg/dL (0.1-1.0); CARBON DIOXIDE 27 mmol/L (22-29); CHLORIDE 106 mmol/L (98-107); CREATININE 1.16 mg/dL (0.60-1.30); GLOMERULAR FILTR. RATE CALC > 60 mL/min (>60); GLUCOSE,RANDOM 109 mg/dL (70-110); SODIUM SERUM 144 mmol/L (136-145); TOTAL PROTEIN, SERUM 7.1 g/dL (6.4-8.2); UREA NITROGEN, BLOOD 14 mg/dL (7-18)
[2020-11-09 08:04] VITALS: BP 97/60
[2020-11-09] MEDS: DEXAMETHASONE 4 MG TABLET PO SCH (08:27)
[2020-11-09] MEDS: FLUoxetine HCL 20 MG CAPSULE PO SCH (08:27)
[2020-11-09 12:02] VITALS: BP 125/51
[2020-11-09 16:00] VITALS: BP 124/63
[2020-11-09] MEDS ORDERED: FLUO-191 PO (16:30)
[2020-11-09] MEDS ORDERED: TRAZ-257 PO (16:31)
[2020-11-09] MEDS ORDERED: PALI3TAB14 PO (16:31)
== END 2020-11-09 17:55 | disposition home or self-care (01) | DRG 137 ==
LOC: EMS 17:23 → 6N 11-04 00:23
PROVIDERS: ADMIT Internal Medicine; ATTEND Internal Medicine
DX: U07.1 COVID-19 (principal); R45.851 Suicidal ideations; J12.82 Pneumonia due to coronavirus disease 2019; N17.9 Acute kidney failure, unspecified; R74.01 Elevation of levels of liver transaminase levels; F25.1 Schizoaffective disorder, depressive type; F31.9 Bipolar disorder, unspecified; I10 Essential (primary) hypertension; F41.9 Anxiety disorder, unspecified; Z79.899 Other long term (current) drug therapy
CPT/HCPCS: 82728; 83615; 84145; 85379; 86140; 87426; 87804; G0480; J1644; J2405; J8540; 36415-L1; 36415-TC; 71045-TC

== ENCOUNTER 2020-11-26 11:47 | Emergency (ER) | payer OTHER ==
[~2020-11-26] VITALS: Ht 167.6 cm; Wt 75.0 kg
[~2020-11-26 11:47] MED LIST changes: -PALI234D IM; +PALI3TAB14 PO
[2020-11-26 11:50] VITALS: BP 127/84
== END 2020-11-26 12:41 | disposition home or self-care (01) ==
LOC: EMS 11:47
DX: Z20.822 Contact with and (suspected) exposure to COVID-19 (principal); F41.9 Anxiety disorder, unspecified; I10 Essential (primary) hypertension; Z79.899 Other long term (current) drug therapy
CPT/HCPCS: 99283; U0003

== ENCOUNTER 2021-08-14 00:24 | Emergency (ER) | payer SELFPAY ==
[~2021-08-14] VITALS: Ht 175.3 cm; Wt 86.4 kg
[2021-08-14 01:00] VITALS: BP 120/79
[2021-08-14 01:10] LABS: BASOPHILS % (AUTO) 0.8 % (0.0-2.0); EOSINOPHILS % (AUTO) 0.5 % (1.0-6.0); HEMATOCRIT 48.7 % (41-53); LYMPHOCYTES # (AUTO) 1.5 K/uL (1.0-4.8); LYMPHOCYTES % (AUTO) 19.5 % (22.0-44.0); MEAN CORPUSCULAR HEMOGLOBIN 28.5 pg (26.0-34.0); MEAN CORPUSCULAR HGB CONC 32.9 G/dL (31.0-37.0); MEAN CORPUSCULAR VOLUME 87 fL (80-100); MONOCYTES # (AUTO) 0.5 K/uL (0.1-1.0); NEUTROPHILS # (AUTO) 5.8 K/uL (1.8-7.7); NEUTROPHILS % (AUTO) 73.2 % (40.0-70.0); PLATELET COUNT (AUTO) 286 K/uL (150-450); RED BLOOD CELL COUNT(AUTO) 5.63 MIL/uL (4.50-5.90); RED CELL DISTRIBUTION WIDTH 13.1 % (11.5-14.5)
[2021-08-14 01:12] LABS: ANION GAP 10 mmol/L (8-16); CALCIUM, TOTAL 9.5 mg/dL (8.8-10.5); CARBON DIOXIDE 30 mmol/L (22-29); CHLORIDE 112 mmol/L (98-107); CREATININE 1.38 mg/dL (0.60-1.30); GLOMERULAR FILTR. RATE CALC > 60 mL/min (>60); GLUCOSE,RANDOM 116 mg/dL (70-110); POTASSIUM 3.9 mmol/L (3.5-5.1); SODIUM SERUM 152 mmol/L (136-145); UREA NITROGEN, BLOOD 10 mg/dL (7-18)
[2021-08-14 01:19] LABS: ALANINE AMINOTRANSFERASE 46 U/L (12-78); ALBUMIN 4.2 g/dL (3.4-5.0); ALKALINE PHOSPHATASE 77 U/L (46-116); ASPARTATE AMINOTRANSFERASE 22 U/L (15-37); BILIRUBIN,TOTAL 0.2 mg/dL (0.1-1.0); TOTAL PROTEIN, SERUM 8.2 g/dL (6.4-8.2)
[2021-08-14 01:22] LABS: COVID AG,FIA SOURCE NASAL SWAB
[2021-08-14 01:31] LABS: AMPHET/METH SCREEN,URINE NEGATIVE (NEGATIVE); BARBITURATE SCREEN, URINE NEGATIVE (NEGATIVE); BENZODIAZEPINES SCREEN,URINE NEGATIVE (NEGATIVE); CANNABINOID SCREEN,URINE NEGATIVE (NEGATIVE); COCAINE SCREEN,URINE NEGATIVE (NEGATIVE); METHADONE SCREEN, URINE NEGATIVE (NEGATIVE); OPIATE SCREEN,URINE NEGATIVE (NEGATIVE)
[2021-08-14 01:32] LABS: PHENCYCLIDINE SCREEN,URINE NEGATIVE (NEGATIVE)
== END 2021-08-14 05:54 | disposition home or self-care (01) ==
LOC: EMS 00:24
DX: F32.9 Major depressive disorder, single episode, unspecified (principal); R45.851 Suicidal ideations; F41.9 Anxiety disorder, unspecified; I10 Essential (primary) hypertension; Z20.822 Contact with and (suspected) exposure to COVID-19
CPT/HCPCS: 36415; 80053; 80307; 85025; 87426; 99284; G0480

== ENCOUNTER 2021-11-25 11:18 | Emergency (ER) | payer MEDICAID, OTHER ==
[~2021-11-25] VITALS: Ht 172.7 cm; Wt 185.0 kg
[2021-11-25 11:23] VITALS: BP 124/78
[2021-11-25] MEDS ORDERED: TRAZ-257 PO (13:22)
== END 2021-11-25 13:35 | disposition home or self-care (01) ==
LOC: EMS 11:18
DX: F41.9 Anxiety disorder, unspecified (principal); F31.9 Bipolar disorder, unspecified; I10 Essential (primary) hypertension; F20.9 Schizophrenia, unspecified; Z79.899 Other long term (current) drug therapy; G47.00 Insomnia, unspecified
CPT/HCPCS: 99283

== ENCOUNTER 2021-12-05 22:33 | Inpatient (IN) | payer MEDICAID ==
[~2021-12-05] VITALS: Ht 172.7 cm; Wt 89.4 kg
[2021-12-05 23:06] LABS: EOSINOPHILS % (AUTO) 0.7 % (1.0-6.0); HEMATOCRIT 52.2 % (41-53); HEMOGLOBIN 17.3 g/dL (13.5-17.5); LYMPHOCYTES # (AUTO) 2.1 K/uL (1.0-4.8); LYMPHOCYTES % (AUTO) 23.1 % (22.0-44.0); MEAN CORPUSCULAR HEMOGLOBIN 28.3 pg (26.0-34.0); MEAN CORPUSCULAR HGB CONC 33.1 G/dL (31.0-37.0); MEAN CORPUSCULAR VOLUME 85 fL (80-100); MONOCYTES # (AUTO) 0.5 K/uL (0.1-1.0); MONOCYTES % (AUTO) 5.5 % (2.0-9.0); NEUTROPHILS # (AUTO) 6.2 K/uL (1.8-7.7); NEUTROPHILS % (AUTO) 69.7 % (40.0-70.0); PLATELET COUNT (AUTO) 283 K/uL (150-450); RED BLOOD CELL COUNT(AUTO) 6.11 MIL/uL (4.50-5.90); RED CELL DISTRIBUTION WIDTH 13.2 % (11.5-14.5)
[2021-12-05 23:41] LABS: ANION GAP 8 mmol/L (8-16); CALCIUM, TOTAL 10.2 mg/dL (8.8-10.5); CARBON DIOXIDE 32 mmol/L (22-29); CHLORIDE 106 mmol/L (98-107); CREATININE 1.39 mg/dL (0.60-1.30); GLUCOSE,RANDOM 102 mg/dL (70-110); POTASSIUM 4.2 mmol/L (3.5-5.1); SODIUM SERUM 146 mmol/L (136-145); UREA NITROGEN, BLOOD 8 mg/dL (7-18)
[2021-12-05 23:44] LABS: GLOMERULAR FILTR. RATE CALC > 60 mL/min (>60)
[2021-12-05 23:47] LABS: ALANINE AMINOTRANSFERASE 59 U/L (12-78); ALBUMIN 4.5 g/dL (3.4-5.0); ALKALINE PHOSPHATASE 96 U/L (46-116); ASPARTATE AMINOTRANSFERASE 33 U/L (15-37); BILIRUBIN,TOTAL 0.5 mg/dL (0.1-1.0); TOTAL PROTEIN, SERUM 8.8 g/dL (6.4-8.2)
[2021-12-06 03:34] LABS: COVID AG,FIA SOURCE NASOPHARYNGEAL
[2021-12-06] MEDS ORDERED: HALOPERIDOL 5 MG TABLET PO PRN (04:45)
[2021-12-06] MEDS ORDERED: LORazepam 2 MG TABLET PO PRN (04:45)
[2021-12-06] MEDS ORDERED: ZOLPIDEM TARTRATE 10 MG TABLET PO PRN (04:45)
[2021-12-06] MEDS ORDERED: ALBUTEROL SULFATE HFA 90 MCG/PUFF 8 GM INHALER IH PRN (07:45)
[2021-12-06] MEDS ORDERED: LOPERAMIDE HCL 2 MG CAPSULE PO PRN (07:45)
[2021-12-06] MEDS ORDERED: CloNIDine HCL 0.1 MG TABLET PO PRN (07:45)
[2021-12-06] MEDS ORDERED: ONDANSETRON HCL 4 MG TABLET PO PRN (07:45)
[2021-12-06] MEDS ORDERED: DOCUSATE SODIUM 100 MG CAPSULE PO PRN (07:45)
[2021-12-06] MEDS ORDERED: IBUPROFEN 600 MG TABLET PO PRN (07:45)
[2021-12-06] MEDS ORDERED: BACITRACIN 28 GM OINTMENT TP PRN (07:45)
[2021-12-06] MEDS ORDERED: MAG HYDROX/AL HYDROX/SIMETH ES 30 ML SUSPENSION UDCUP PO PRN (07:45)
[2021-12-06] MEDS ORDERED: OMEPRAZOLE 20 MG CAPSULE PO PRN (07:45)
[2021-12-06] MEDS ORDERED: PETROLATUM,WHITE 28 GM JELLY TP PRN (07:45)
[2021-12-06] MEDS ORDERED: ACETAMINOPHEN 325 MG TABLET PO PRN (07:45)
[2021-12-06] MEDS ORDERED: BENZOCAINE/MENTHOL LOZENGE PO PRN (07:45)
[2021-12-06] MEDS ORDERED: MAGNESIUM HYDROXIDE SUSPENSION 30 ML UDCUP PO PRN (07:45)
[2021-12-06 09:06] VITALS: BP 127/71
[2021-12-06 16:26] VITALS: BP 107/60
[2021-12-07 10:07] VITALS: BP 155/84
[2021-12-07 16:00] VITALS: BP 99/69
[2021-12-08 10:01] VITALS: BP 112/82
[2021-12-08 16:30] VITALS: BP 145/86
== END 2021-12-08 18:43 | disposition home or self-care (01) | DRG 750 ==
LOC: EMS 22:37 → 3EI 12-06 07:04
PROVIDERS: ADMIT Psychiatry & Neurology Psychiatry; ATTEND Psychiatry & Neurology Psychiatry
DX: F25.1 Schizoaffective disorder, depressive type (principal); R45.851 Suicidal ideations; Z91.14 Patient's other noncompliance with medication regimen; K59.00 Constipation, unspecified; Z20.822 Contact with and (suspected) exposure to COVID-19; F19.10 Other psychoactive substance abuse, uncomplicated; G47.00 Insomnia, unspecified; F31.9 Bipolar disorder, unspecified; I10 Essential (primary) hypertension; F41.9 Anxiety disorder, unspecified; Z86.16 Personal history of COVID-19; Z79.899 Other long term (current) drug therapy
CPT/HCPCS: 80053; 80061; 85025; 99285; G0480

== ENCOUNTER 2023-05-26 21:18 | Inpatient (IN) | payer MEDICAID ==
[~2023-05-26] VITALS: Ht 175.3 cm; Wt 98.4 kg
[2023-05-27] MEDS ORDERED: LORazepam 2 MG TABLET PO PRN (00:30)
[2023-05-27] MEDS ORDERED: HALOPERIDOL 5 MG TABLET PO PRN (00:30)
[2023-05-27] MEDS ORDERED: ZOLPIDEM TARTRATE 10 MG TABLET PO PRN (00:30)
[2023-05-27 01:00] VITALS: BP 127/70; PULSE 82; RESP 18; TEMP 98.1; O2SAT 99
[2023-05-27 03:16] LABS: GLUCOMETER DEV NAME(LOC) POC.BV
[2023-05-27] MEDS ORDERED: PNEUMOCOCCAL VACCINE POLYVALENT 0.5 ML SYRINGE [PPSV23] IM. ONE (04:45)
[2023-05-27] MEDS ORDERED: CloNIDine HCL 0.1 MG TABLET PO PRN (07:00)
[2023-05-27] MEDS ORDERED: IBUPROFEN 400 MG TABLET PO PRN (07:00)
[2023-05-27] MEDS ORDERED: MAG HYDROX/AL HYDROX/SIMETH ES 30 ML SUSPENSION UDCUP PO PRN (07:00)
[2023-05-27] MEDS ORDERED: ONDANSETRON HCL 4 MG TABLET PO PRN (07:00)
[2023-05-27] MEDS ORDERED: GuaiFENesin/D-METHORPHAN [SUGAR-FREE] 200-20MG/10 ML SYRUP UDCUP PO PRN (07:00)
[2023-05-27] MEDS ORDERED: LOPERAMIDE HCL 2 MG CAPSULE PO PRN (07:00)
[2023-05-27] MEDS ORDERED: NICOTINE 14 MG/24 HOUR PATCH TD PRN (07:00)
[2023-05-27] MEDS ORDERED: ACETAMINOPHEN 325 MG TABLET PO PRN (07:00)
[2023-05-27] MEDS ORDERED: PETROLATUM,WHITE 28 GM JELLY TP PRN (07:00)
[2023-05-27] MEDS ORDERED: DOCUSATE SODIUM 100 MG CAPSULE PO PRN (07:00)
[2023-05-27] MEDS ORDERED: ALBUTEROL SULFATE HFA 90 MCG/PUFF 8 GM INHALER IH PRN (07:00)
[2023-05-27] MEDS ORDERED: MAGNESIUM HYDROXIDE SUSPENSION 30 ML UDCUP PO PRN (07:00)
[2023-05-27 08:18] LABS: BASOPHILS % (AUTO) 0.9 % (0.0-2.0); EOSINOPHILS % (AUTO) 2.4 % (1.0-6.0); HEMATOCRIT 47.1 % (41-53); HEMOGLOBIN 15.4 g/dL (13.5-17.5); LYMPHOCYTES # (AUTO) 1.7 K/uL (1.0-4.8); LYMPHOCYTES % (AUTO) 25.2 % (22.0-44.0); MEAN CORPUSCULAR HEMOGLOBIN 28.7 pg (26.0-34.0); MEAN CORPUSCULAR HGB CONC 32.6 G/dL (31.0-37.0); MEAN CORPUSCULAR VOLUME 88 fL (80-100); MONOCYTES # (AUTO) 0.5 K/uL (0.1-1.0); MONOCYTES % (AUTO) 7.1 % (2.0-9.0); NEUTROPHILS # (AUTO) 4.4 K/uL (1.8-7.7); NEUTROPHILS % (AUTO) 64.4 % (40.0-70.0); PLATELET COUNT (AUTO) 244 K/uL (150-450); RED BLOOD CELL COUNT(AUTO) 5.35 MIL/uL (4.50-5.90); RED CELL DISTRIBUTION WIDTH 13.9 % (11.5-14.5)
[2023-05-27 08:42] VITALS: BP 108/76; PULSE 82; RESP 18; TEMP 97.6; O2SAT 96
[2023-05-27 08:56] LABS: ALANINE AMINOTRANSFERASE 62 U/L (12-78); ALBUMIN 3.5 g/dL (3.4-5.0); ALKALINE PHOSPHATASE 78 U/L (46-116); ANION GAP 11 mmol/L (8-16); ASPARTATE AMINOTRANSFERASE 26 U/L (15-37); BILIRUBIN,TOTAL 0.3 mg/dL (0.1-1.0); CALCIUM, TOTAL 9.3 mg/dL (8.8-10.5); CARBON DIOXIDE 24 mmol/L (22-29); CHLORIDE 108 mmol/L (98-107); CHOL/HDL RATIO 4.6 (4.2-7.3); CHOLESTEROL 206 mg/dL (131-200); CREATININE 1.03 mg/dL (0.60-1.30); FREE T4 (FREE THYROXINE) 0.87 ng/dL (0.76-1.46); GLOMERULAR FILTR. RATE CALC > 60 mL/min (>60); GLUCOSE,RANDOM 152 mg/dL (70-110); HDL CHOLESTEROL 45 mg/dL (40-60); LDL CHOL (CALC.) 126 mg/dL (0-130); POTASSIUM 4.2 mmol/L (3.5-5.1); SODIUM SERUM 143 mmol/L (136-145); THYROID STIMULATING HORMONE 2.16 uIU/mL (0.36-3.74); TOTAL PROTEIN, SERUM 6.9 g/dL (6.4-8.2); TRIGLYCERIDES 176 mg/dL (15-150)
[2023-05-27] MEDS: FLUoxetine HCL 20 MG CAPSULE PO SCH (13:10)
[2023-05-27 20:24] VITALS: BP 110/88; PULSE 84; RESP 18; TEMP 97.9; O2SAT 98
[2023-05-27] MEDS: QUEtiapine FUMARATE 200 MG TABLET PO SCH (20:29)
[2023-05-28 07:52] LABS: HEMOGLOBIN A1C 5.8 % (3.8-5.6)
[2023-05-28 08:08] LABS: CHOL/HDL RATIO 4.7 (4.2-7.3); THYROID STIMULATING HORMONE 2.18 uIU/mL (0.36-3.74)
[2023-05-28 08:41] VITALS: BP 135/90; PULSE 105; RESP 19; TEMP 98.1; O2SAT 98
[2023-05-28] MEDS: FLUoxetine HCL 20 MG CAPSULE PO SCH (09:26)
[2023-05-28] MEDS: QUEtiapine FUMARATE 200 MG TABLET PO SCH (20:13)
[2023-05-28 21:30] VITALS: BP 119/60; PULSE 114; RESP 17; TEMP 98.2; O2SAT 97
[2023-05-29 08:58] VITALS: BP 120/90; PULSE 99; RESP 19; TEMP 98.2; O2SAT 98
[2023-05-29] MEDS: FLUoxetine HCL 20 MG CAPSULE PO SCH (09:26)
[2023-05-29 18:56] VITALS: RESP 19; O2SAT 100
[2023-05-29 20:52] VITALS: BP 127/68; PULSE 86; RESP 19; TEMP 98.6; O2SAT 100
[2023-05-29] MEDS: QUEtiapine FUMARATE 200 MG TABLET PO SCH (21:16)
[2023-05-30] MEDS ORDERED: MetFORMIN HCL 500 MG TABLET PO SCH (07:00)
[2023-05-30 08:47] VITALS: BP 125/60; PULSE 86; RESP 18; TEMP 98.2; O2SAT 99
[2023-05-30] MEDS: FLUoxetine HCL 20 MG CAPSULE PO SCH (08:56)
[2023-05-30] MEDS ORDERED: METF-1211 PO (09:43)
[2023-05-30] MEDS ORDERED: FLUO20CA36 PO (09:43)
[2023-05-30] MEDS ORDERED: QUET200T30 PO (09:43)
== END 2023-05-30 16:05 | disposition home or self-care (01) | DRG 750 ==
LOC: B2S 05-27 00:27
PROVIDERS: ADMIT Psychiatry & Neurology Psychiatry; ATTEND Psychiatry & Neurology Psychiatry
DX: F25.1 Schizoaffective disorder, depressive type (principal); R45.851 Suicidal ideations; E78.5 Hyperlipidemia, unspecified; F41.9 Anxiety disorder, unspecified; Z20.822 Contact with and (suspected) exposure to COVID-19; I10 Essential (primary) hypertension; R73.03 Prediabetes; Z59.00 Homelessness unspecified
CPT/HCPCS: 80053; 80061; 83036; 84436; 84439; 84443; 85025; 86592; G0480

== ENCOUNTER 2023-07-01 19:34 | Emergency (ER) | payer MEDICAID, OTHER ==
[~2023-07-01] VITALS: Ht 172.7 cm; Wt 90.9 kg
[~2023-07-01 19:34] MED LIST changes: -FLUO-191 PO; +FLUO20CA36 PO; +METF-1211 PO; -NALT50TA6 PO; -PALI3TAB14 PO; -PALI6TAB15 PO; +QUET200T30 PO; -TRAZ-257 PO
[2023-07-01 19:48] VITALS: BP 129/70; PULSE 106; RESP 20; TEMP 98.8
[2023-07-01 20:41] LABS: BASOPHILS % (AUTO) 0.6 % (0.0-2.0); EOSINOPHILS % (AUTO) 1.2 % (1.0-6.0); HEMATOCRIT 49.3 % (41-53); HEMOGLOBIN 16.4 g/dL (13.5-17.5); LYMPHOCYTES % (AUTO) 23.9 % (22.0-44.0); MEAN CORPUSCULAR HEMOGLOBIN 28.9 pg (26.0-34.0); MEAN CORPUSCULAR HGB CONC 33.2 G/dL (31.0-37.0); MEAN CORPUSCULAR VOLUME 87 fL (80-100); MONOCYTES # (AUTO) 0.6 K/uL (0.1-1.0); MONOCYTES % (AUTO) 7.5 % (2.0-9.0); NEUTROPHILS # (AUTO) 5.6 K/uL (1.8-7.7); NEUTROPHILS % (AUTO) 66.8 % (40.0-70.0); PLATELET COUNT (AUTO) 215 K/uL (150-450); RED BLOOD CELL COUNT(AUTO) 5.66 MIL/uL (4.50-5.90); RED CELL DISTRIBUTION WIDTH 13.8 % (11.5-14.5); WHITE BLOOD COUNT (AUTO) 8.4 K/uL (4.5-11.0)
[2023-07-01 20:47] LABS: PH,URINE DRUG SCREEN 5.5 (5.0-8.0)
[2023-07-01 20:52] LABS: ALCOHOL, URINE DRUG SCREEN NEGATIVE (NEGATIVE); AMPHET/METH SCREEN,URINE NEGATIVE (NEGATIVE); BARBITURATE SCREEN, URINE NEGATIVE (NEGATIVE); BENZODIAZEPINES SCREEN,URINE NEGATIVE (NEGATIVE); CANNABINOID SCREEN,URINE NEGATIVE (NEGATIVE); COCAINE SCREEN,URINE NEGATIVE (NEGATIVE); METHADONE SCREEN, URINE NEGATIVE (NEGATIVE); OPIATE SCREEN,URINE NEGATIVE (NEGATIVE); PHENCYCLIDINE SCREEN,URINE NEGATIVE (NEGATIVE)
[2023-07-01 20:53] LABS: ANION GAP 11 mmol/L (8-16); CALCIUM, TOTAL 9.3 mg/dL (8.8-10.5); CARBON DIOXIDE 26 mmol/L (22-29); CHLORIDE 107 mmol/L (98-107); CREATININE 1.21 mg/dL (0.60-1.30); GLOMERULAR FILTR. RATE CALC > 60 mL/min (>60); GLUCOSE,RANDOM 98 mg/dL (70-110); POTASSIUM 3.6 mmol/L (3.5-5.1); SODIUM SERUM 143 mmol/L (136-145); UREA NITROGEN, BLOOD 12 mg/dL (7-18)
[2023-07-01 20:59] LABS: ALANINE AMINOTRANSFERASE 44 U/L (12-78); ALKALINE PHOSPHATASE 87 U/L (46-116); ASPARTATE AMINOTRANSFERASE 28 U/L (15-37); BILIRUBIN,TOTAL 0.4 mg/dL (0.1-1.0); TOTAL PROTEIN, SERUM 7.8 g/dL (6.4-8.2)
[2023-07-01 21:27] LABS: ALCOHOL, BLOOD (SERUM) < 3 mg/dL (0-10)
[2023-07-01] MEDS ORDERED: LORazepam 2 MG TABLET PO ONE (22:45)
== END 2023-07-01 23:43 | disposition home or self-care (01) ==
LOC: EMS 19:37
DX: F25.1 Schizoaffective disorder, depressive type (principal); F41.9 Anxiety disorder, unspecified; F17.210 Nicotine dependence, cigarettes, uncomplicated
CPT/HCPCS: 99283; 80053; 85025; 36415; 80307; G0480